=== PATIENT | female | born 1940 | race Caucasian/White ===

== ENCOUNTER → 2016-10-22 | Outpatient (REF) | payer MEDICARE, OTHER ==
[2016-10-22 13:26] LABS: ALBUMIN 3.5 GM/DL (3.2-5.2); ANION GAP 8 MEQ/L (8-16); BLOOD UREA NITROGEN 15 MG/DL (7-18); CALCIUM LEVEL 8.9 MG/DL (8.8-10.2); CARBON DIOXIDE LEVEL 30 MEQ/L (21-32); CHLORIDE LEVEL 105 MEQ/L (98-107); CREATININE FOR GFR 0.76 MG/DL (0.55-1.02); GLOMERULAR FILTRATION RATE > 60.0 (>39); GLUCOSE, FASTING 169 MG/DL (83-110); MAGNESIUM LEVEL 2.1 MG/DL (1.8-2.4); PHOSPHORUS LEVEL 3.1 MG/DL (2.5-4.9); POTASSIUM SERUM 4.6 MEQ/L (3.5-5.1); SODIUM LEVEL 143 MEQ/L (136-145)
== END ==
LOC: M LABDRWAD 12:07
PROVIDERS: ATTEND Physician Assistant
DX: R94.31 Abnormal electrocardiogram [ECG] [EKG] (principal); I49.3 Ventricular premature depolarization

== ENCOUNTER → 2017-06-07 | Outpatient (REF) | payer MEDICARE, OTHER ==
[2017-06-07 14:11] LABS: MEAN CORPUSCULAR HEMOGLOBIN 29.4 pg (27.0-33.0); MEAN CORPUSCULAR HGB CONC 31.2 g/dl (32.0-36.5); MEAN CORPUSCULAR VOLUME 94.1 fl (80.0-96.0); RED CELL DISTRIBUTION WIDTH 13.3 % (11.5-14.5); WHITE BLOOD COUNT 8.3 10^3/uL (4.0-10.0)
[2017-06-07 14:39] LABS: ALBUMIN 3.5 GM/DL (3.2-5.2); ALBUMIN/GLOBULIN RATIO 1.06 (1.00-1.93); ALKALINE PHOSPHATASE 72 U/L (45-117); ALT/SGPT 38 U/L (12-78); ANION GAP 7 MEQ/L (8-16); AST/SGOT 23 U/L (15-37); BILIRUBIN,TOTAL 0.6 MG/DL (0.2-1.0); BLOOD UREA NITROGEN 12 MG/DL (7-18); CALCIUM LEVEL 9.1 MG/DL (8.8-10.2); CARBON DIOXIDE LEVEL 30 MEQ/L (21-32); CHLORIDE LEVEL 105 MEQ/L (98-107); CHOLESTEROL LEVEL 186 MG/DL (<200); CREATININE FOR GFR 0.75 MG/DL (0.55-1.02); GLOMERULAR FILTRATION RATE > 60.0 (>39); GLUCOSE, FASTING 140 MG/DL (83-110); POTASSIUM SERUM 4.8 MEQ/L (3.5-5.1); SODIUM LEVEL 142 MEQ/L (136-145); TOTAL PROTEIN 6.8 GM/DL (6.4-8.2); TRIGLYCERIDES LEVEL 125 MG/DL (<150)
== END ==
LOC: M LABDRWAD 12:17
PROVIDERS: ATTEND Family Medicine
DX: E78.2 Mixed hyperlipidemia (principal)

== ENCOUNTER → 2017-06-07 | Outpatient (REF) | payer MEDICARE, OTHER | LOC: M LABDRWAD 12:18 | PROVIDERS: ATTEND Internal Medicine Endocrinology, Diabetes & Metabolism | DX: E11.9 Type 2 diabetes mellitus without complications (principal) ==

== ENCOUNTER → 2017-08-26 | Outpatient (REF) | payer MEDICARE, OTHER ==
[2017-08-26 12:45] LABS: MEAN CORPUSCULAR HEMOGLOBIN 29.5 pg (27.0-33.0); MEAN CORPUSCULAR HGB CONC 31.9 g/dl (32.0-36.5); MEAN CORPUSCULAR VOLUME 92.5 fl (80.0-96.0); PLATELET COUNT, AUTOMATED 220 10^3/uL (150-450); RED CELL DISTRIBUTION WIDTH 13.5 % (11.5-14.5); WHITE BLOOD COUNT 8.4 10^3/uL (4.0-10.0)
[2017-08-26 13:17] LABS: ALBUMIN 3.5 GM/DL (3.2-5.2); ANION GAP 6 MEQ/L (8-16); BLOOD UREA NITROGEN 14 MG/DL (7-18); CARBON DIOXIDE LEVEL 32 MEQ/L (21-32); CHLORIDE LEVEL 102 MEQ/L (98-107); CREATININE FOR GFR 0.75 MG/DL (0.55-1.02); GLOMERULAR FILTRATION RATE > 60.0 (>39); GLUCOSE, FASTING 180 MG/DL (83-110); PHOSPHORUS LEVEL 3.6 MG/DL (2.5-4.9); POTASSIUM SERUM 4.2 MEQ/L (3.5-5.1); SODIUM LEVEL 140 MEQ/L (136-145)
== END ==
LOC: M LABDRWAD 12:18
PROVIDERS: ATTEND Physician Assistant
DX: I48.91 Unspecified atrial fibrillation (principal)

== ENCOUNTER → 2017-09-29 | Outpatient (REF) | payer MEDICARE, OTHER | LOC: M LAB REF 12:43 | DX: I48.91 Unspecified atrial fibrillation (principal) | CPT/HCPCS: 82270 ==

== ENCOUNTER → 2017-09-30 | Outpatient (REF) | payer MEDICARE, OTHER ==
[2017-09-30 14:29] LABS: HEMATOCRIT 47.2 % (36.0-47.0); HEMOGLOBIN 15.2 g/dl (12.0-16.0); MEAN CORPUSCULAR HEMOGLOBIN 29.6 pg (27.0-33.0); MEAN CORPUSCULAR HGB CONC 32.2 g/dl (32.0-36.5); MEAN CORPUSCULAR VOLUME 91.8 fl (80.0-96.0); PLATELET COUNT, AUTOMATED 118 10^3/uL (150-450); RED BLOOD COUNT 5.14 10^6/uL (4.00-5.40); RED CELL DISTRIBUTION WIDTH 13.5 % (11.5-14.5); WHITE BLOOD COUNT 6.4 10^3/uL (4.0-10.0)
== END ==
LOC: M LABDRWAD 12:52
DX: I48.91 Unspecified atrial fibrillation (principal)
CPT/HCPCS: 85027

== ENCOUNTER → 2018-03-09 | Outpatient (REF) | payer MEDICARE, OTHER ==
[2018-03-09 13:05] LABS: HEMATOCRIT 44.6 % (36.0-47.0); HEMOGLOBIN 14.4 g/dl (12.0-15.5); MEAN CORPUSCULAR HEMOGLOBIN 30.3 pg (27.0-33.0); MEAN CORPUSCULAR HGB CONC 32.3 g/dl (32.0-36.5); MEAN CORPUSCULAR VOLUME 93.9 fl (80.0-96.0); PLATELET COUNT, AUTOMATED 188 10^3/uL (150-450); RED BLOOD COUNT 4.75 10^6/uL (4.00-5.40); RED CELL DISTRIBUTION WIDTH 13.7 % (11.5-14.5); WHITE BLOOD COUNT 8.2 10^3/uL (4.0-10.0)
[2018-03-09 13:47] LABS: ANION GAP 7 MEQ/L (8-16); BLOOD UREA NITROGEN 14 MG/DL (7-18); CALCIUM LEVEL 8.9 MG/DL (8.8-10.2); CARBON DIOXIDE LEVEL 31 MEQ/L (21-32); CHLORIDE LEVEL 105 MEQ/L (98-107); CREATININE FOR GFR 0.74 MG/DL (0.55-1.30); GLOMERULAR FILTRATION RATE > 60.0 (>39); GLUCOSE, FASTING 161 MG/DL (70-100); MAGNESIUM LEVEL 1.9 MG/DL (1.8-2.4); POTASSIUM SERUM 4.6 MEQ/L (3.5-5.1); SODIUM LEVEL 143 MEQ/L (136-145)
== END ==
LOC: M LAB REF 12:29
DX: I48.2 Chronic atrial fibrillation (principal)
CPT/HCPCS: 83735

== ENCOUNTER → 2019-03-08 | Outpatient (REF) | payer MEDICARE, OTHER ==
[2019-03-08 13:45] LABS: ALBUMIN 3.3 GM/DL (3.2-5.2); ALT/SGPT 37 U/L (12-78); BILIRUBIN,TOTAL 0.6 MG/DL (0.2-1.0); BLOOD UREA NITROGEN 14 MG/DL (7-18); CALCIUM LEVEL 8.9 MG/DL (8.8-10.2); CARBON DIOXIDE LEVEL 29 MEQ/L (21-32); CHLORIDE LEVEL 105 MEQ/L (98-107); CHOLESTEROL LEVEL 160 MG/DL (<200); CHOLESTEROL RISK RATIO 3.333 (<5); CREATININE FOR GFR 0.77 MG/DL (0.55-1.30); GLOMERULAR FILTRATION RATE > 60.0 (>39); GLUCOSE, FASTING 179 MG/DL (70-100); HDL CHOLESTEROL 48 MG/DL (>40); LDL CHOLESTEROL 87 MG/DL (<100); NON-HDL-C 112 MG/DL; POTASSIUM SERUM 4.6 MEQ/L (3.5-5.1); SODIUM LEVEL 139 MEQ/L (136-145); TOTAL PROTEIN 6.7 GM/DL (6.4-8.2); TRIGLYCERIDES LEVEL 125 MG/DL (<150)
[2019-03-08 14:13] LABS: CREATININE, URINE 60.1 MG/DL; MALB URINE SIEMENS 6.9 MG/L; MAU/CREAT RATIO 11.4 MCG/MG (0.0-30.0)
== END ==
LOC: M LABDRWAD 12:13
PROVIDERS: ATTEND Nurse Practitioner Family
DX: E11.9 Type 2 diabetes mellitus without complications (principal); E78.2 Mixed hyperlipidemia

== ENCOUNTER → 2019-06-22 | Outpatient (CLI) | payer MEDICARE, OTHER ==
--- NOTE | 2019-06-22 14:51 | REP ---
RIGHT KNEE, SIX VIEWS: Six views of the right knee performed. There is no acute fracture or dislocation. There is moderate medial joint space narrowing with subchondral sclerosis and spurring. Vascular calcifications are seen posteriorly. There is mild spurring of the superior pole of the patella and lateral patellar facet. IMPRESSION: Moderate degenerative changes. Electronically Signed by Gm Rios MD 06/26/2019 08:53 A
== END ==
LOC: M ADAMS 13:50
PROVIDERS: ATTEND Physician Assistant Medical
DX: M16.11 Unilateral primary osteoarthritis, right hip (principal)

== ENCOUNTER → 2020-10-10 | Outpatient (REF) | payer MEDICARE, OTHER ==
[2020-10-10 14:25] LABS: HEMOGLOBIN A1c 8.6 %
[2020-10-10 14:35] LABS: ALBUMIN 3.5 GM/DL (3.2-5.2); ALT/SGPT 42 U/L (12-78); BILIRUBIN,TOTAL 0.6 MG/DL (0.2-1.0); BLOOD UREA NITROGEN 11 MG/DL (7-18); CALCIUM LEVEL 9.5 MG/DL (8.8-10.2); CARBON DIOXIDE LEVEL 30 MEQ/L (21-32); CHLORIDE LEVEL 104 MEQ/L (98-107); CHOLESTEROL LEVEL 203 MG/DL (<200); CREATININE FOR GFR 0.72 MG/DL (0.55-1.30); GLOMERULAR FILTRATION RATE > 60.0 (>39); GLUCOSE, FASTING 206 MG/DL (70-100); HDL CHOLESTEROL 50 MG/DL (>40); LDL CHOLESTEROL 124 MG/DL (<100); NON-HDL-C 153 MG/DL; POTASSIUM SERUM 4.7 MEQ/L (3.5-5.1); SODIUM LEVEL 142 MEQ/L (136-145); TOTAL PROTEIN 6.8 GM/DL (6.4-8.2); TRIGLYCERIDES LEVEL 147 MG/DL (<150)
[2020-10-10 14:48] LABS: MAU/CREAT RATIO 41.8 MCG/MG (0.0-30.0)
== END ==
LOC: M LABDRWAD 12:40
PROVIDERS: ATTEND Nurse Practitioner Family
DX: E11.9 Type 2 diabetes mellitus without complications (principal); E78.2 Mixed hyperlipidemia

== ENCOUNTER → 2020-12-29 | Outpatient (REF) | payer MEDICARE, OTHER ==
[2020-12-29 12:57] LABS: BASO % 0.4 % (0.0-1.0); EOS # 0.1 10^3/uL (0.0-0.5); EOS % 1.4 % (0.0-3.0); HEMATOCRIT 45.3 % (36.0-47.0); HEMOGLOBIN 13.8 g/dl (12.0-15.5); LYMPH # 1.5 10^3/uL (1.5-5.0); LYMPH % 18.3 % (24.0-44.0); MEAN CORPUSCULAR HEMOGLOBIN 28.8 pg (27.0-33.0); MEAN CORPUSCULAR HGB CONC 30.5 g/dl (32.0-36.5); MEAN CORPUSCULAR VOLUME 94.4 fl (80.0-96.0); MONO # 0.5 10^3/uL (0.0-0.8); MONO % 5.8 % (2.0-8.0); NEUTROPHILS # 5.8 10^3/uL (1.5-8.5); NEUTROPHILS % 73.5 % (36.0-66.0); PLATELET COUNT, AUTOMATED 165 10^3/uL (150-450); WHITE BLOOD COUNT 7.9 10^3/uL (4.0-10.0)
== END ==
LOC: M LABDRWAD 12:18
PROVIDERS: ATTEND Family Medicine
DX: I10 Essential (primary) hypertension (principal)

== ENCOUNTER → 2020-12-29 | Outpatient (REF) | payer MEDICARE, OTHER ==
[2020-12-29 14:39] LABS: BLOOD UREA NITROGEN 11 MG/DL (7-18); CALCIUM LEVEL 9.3 MG/DL (8.8-10.2); CARBON DIOXIDE LEVEL 28 MEQ/L (21-32); CHLORIDE LEVEL 106 MEQ/L (98-107); GLOMERULAR FILTRATION RATE > 60.0 (>39); GLUCOSE, FASTING 164 MG/DL (70-100); POTASSIUM SERUM 4.3 MEQ/L (3.5-5.1); SODIUM LEVEL 140 MEQ/L (136-145)
== END ==
LOC: M LABDRWAD 12:16 → M LAB REF 12:16
PROVIDERS: ATTEND Nurse Practitioner Family
DX: E11.9 Type 2 diabetes mellitus without complications (principal); I10 Essential (primary) hypertension

== ENCOUNTER → 2021-04-02 | Outpatient (REF) | payer MEDICARE, OTHER ==
[2021-04-02 12:49] LABS: HEMATOCRIT 47.1 % (36.0-47.0); HEMOGLOBIN 14.7 g/dl (12.0-15.5); MEAN CORPUSCULAR HEMOGLOBIN 28.9 pg (27.0-33.0); MEAN CORPUSCULAR HGB CONC 31.2 g/dl (32.0-36.5); MEAN CORPUSCULAR VOLUME 92.5 fl (80.0-96.0); PLATELET COUNT, AUTOMATED 194 10^3/uL (150-450); RED BLOOD COUNT 5.09 10^6/uL (4.00-5.40)
[2021-04-02 13:21] LABS: BLOOD UREA NITROGEN 10 MG/DL (7-18); CALCIUM LEVEL 9.2 MG/DL (8.8-10.2); CARBON DIOXIDE LEVEL 30 MEQ/L (21-32); CHLORIDE LEVEL 106 MEQ/L (98-107); CREATININE FOR GFR 0.71 MG/DL (0.55-1.30); GLOMERULAR FILTRATION RATE > 60.0 (>39); GLUCOSE, FASTING 154 MG/DL (70-100); POTASSIUM SERUM 4.5 MEQ/L (3.5-5.1); SODIUM LEVEL 143 MEQ/L (136-145)
[2021-04-02 13:22] LABS: ALBUMIN 3.4 GM/DL (3.2-5.2); ALT/SGPT 35 U/L (12-78); BILIRUBIN,TOTAL 0.7 MG/DL (0.2-1.0); CHOLESTEROL LEVEL 191 MG/DL (<200); CHOLESTEROL RISK RATIO 3.745 (<5); HDL CHOLESTEROL 51 MG/DL (>40); LDL CHOLESTEROL 118 MG/DL (<100); MAGNESIUM LEVEL 2.4 MG/DL (1.8-2.4); NON-HDL-C 140 MG/DL; TRIGLYCERIDES LEVEL 109 MG/DL (<150)
== END ==
LOC: M LABDRWAD 12:26
PROVIDERS: ATTEND Physician Assistant
DX: I48.21 Permanent atrial fibrillation (principal); I25.10 Atherosclerotic heart disease of native coronary artery without angina pectoris; E78.00 Pure hypercholesterolemia, unspecified

== ENCOUNTER → 2022-02-11 | Outpatient (REF) | payer MEDICARE, OTHER ==
[2022-02-11 18:43] LABS: CREATININE, URINE 17.9 MG/DL; MALB URINE SIEMENS < 5.0 MG/L; MAU/CREAT RATIO 27.9 MCG/MG (0.0-30.0)
== END ==
LOC: M LAB REF 16:59
PROVIDERS: ATTEND Nurse Practitioner Family
DX: E11.9 Type 2 diabetes mellitus without complications (principal)

== ENCOUNTER → 2022-12-29 | Outpatient (CLI) | payer MEDICARE, OTHER ==
[2022-12-29 13:04] LABS: BASO % 0.1 % (0.0-1.0); EOS # 0.1 10^3/uL (0.0-0.5); EOS % 0.8 % (0.0-3.0); HEMATOCRIT 47.7 % (36.0-47.0); HEMOGLOBIN 14.8 g/dl (12.0-15.5); LYMPH # 0.9 10^3/uL (1.5-5.0); LYMPH % 13.2 % (24.0-44.0); MEAN CORPUSCULAR HEMOGLOBIN 28.8 pg (27.0-33.0); MONO # 0.4 10^3/uL (0.0-0.8); MONO % 5.5 % (2.0-8.0); NEUTROPHILS # 5.7 10^3/uL (1.5-8.5); NEUTROPHILS % 79.6 % (36.0-66.0); PLATELET COUNT, AUTOMATED 155 10^3/uL (150-450); RED BLOOD COUNT 5.13 10^6/uL (4.00-5.40); WHITE BLOOD COUNT 7.1 10^3/uL (4.0-10.0)
[2022-12-29 13:10] LABS: ALBUMIN 3.3 G/DL (3.2-5.2); ALKALINE PHOSPHATASE 77 U/L (46-116); ALT/SGPT 15 U/L (7.0-40); AST/SGOT 17 U/L (<34); BILIRUBIN,TOTAL 0.9 MG/DL (0.3-1.2); BLOOD UREA NITROGEN 16 MG/DL (9-23); CALCIUM LEVEL 9.1 MG/DL (8.3-10.6); CARBON DIOXIDE LEVEL 28 MMOL/L (20-31); CHLORIDE LEVEL 107 MMOL/L (98-107); CHOLESTEROL LEVEL 192 MG/DL (<200); CHOLESTEROL RISK RATIO 3.49 (<5); CREATININE FOR GFR 0.72 MG/DL (0.55-1.30); GLOMERULAR FILTRATION RATE > 60.0 (>32); GLUCOSE, FASTING 142 MG/DL (74-106); HDL CHOLESTEROL 54.9 MG/DL (>40); LDL CHOLESTEROL 114.9 MG/DL (<100); NON-HDL-C 137.1 MG/DL; POTASSIUM SERUM 4.6 MMOL/L (3.5-5.1); SODIUM LEVEL 141 MMOL/L (136-145); TOTAL PROTEIN 6.7 G/DL (5.7-8.2); TRIGLYCERIDES LEVEL 111 MG/DL (<150)
== END ==
LOC: M LABDRWAD 08:23
PROVIDERS: ATTEND Physician Assistant
DX: I48.21 Permanent atrial fibrillation (principal); I25.10 Atherosclerotic heart disease of native coronary artery without angina pectoris; I10 Essential (primary) hypertension; E78.00 Pure hypercholesterolemia, unspecified

== ENCOUNTER → 2023-01-20 | Outpatient (CLI) | payer MEDICARE, OTHER | LOC: M WUC 11:29 | PROVIDERS: ATTEND Student in an Organized Health Care Education/Training Program | DX: S42.211A Unspecified displaced fracture of surgical neck of right humerus, initial encounter for closed fracture (principal); S42.251A Displaced fracture of greater tuberosity of right humerus, initial encounter for closed fracture; M19.011 Primary osteoarthritis, right shoulder; M25.511 Pain in right shoulder; Y99.8 Other external cause status; Y93.89 Activity, other specified; Y92.89 Other specified places as the place of occurrence of the external cause ==

== ENCOUNTER → 2023-03-18 | Outpatient (REF) | payer MEDICARE, OTHER ==
[2023-03-18 14:24] LABS: BLOOD UREA NITROGEN 14 MG/DL (9-23); CALCIUM LEVEL 9.7 MG/DL (8.3-10.6); CARBON DIOXIDE LEVEL 29 MMOL/L (20-31); CHLORIDE LEVEL 105 MMOL/L (98-107); CREATININE FOR GFR 0.66 MG/DL (0.55-1.30); GLOMERULAR FILTRATION RATE > 60.0 (>32); GLUCOSE, FASTING 247 MG/DL (74-106); POTASSIUM SERUM 4.2 MMOL/L (3.5-5.1); SODIUM LEVEL 139 MMOL/L (136-145)
== END ==
LOC: M LABDRWAD 12:53
PROVIDERS: ATTEND Physician Assistant
DX: I50.32 Chronic diastolic (congestive) heart failure (principal)

== ENCOUNTER → 2023-03-22 | Outpatient (CLI) | payer MEDICARE, OTHER | LOC: M RAD 13:22 | PROVIDERS: ATTEND Surgery | DX: L97.212 Non-pressure chronic ulcer of right calf with fat layer exposed (principal) ==

== ENCOUNTER → 2023-03-24 | Outpatient (CLI) | payer MEDICARE, OTHER | LOC: M RAD 10:34 | PROVIDERS: ATTEND Physician Assistant | DX: I87.313 Chronic venous hypertension (idiopathic) with ulcer of bilateral lower extremity (principal) ==

== ENCOUNTER → 2023-04-13 | Outpatient (REF) | payer MEDICARE, OTHER ==
[2023-04-13 16:18] LABS: BLOOD UREA NITROGEN 18 MG/DL (9-23); CARBON DIOXIDE LEVEL 31 MMOL/L (20-31); CHLORIDE LEVEL 104 MMOL/L (98-107); GLOMERULAR FILTRATION RATE > 60.0 (>32); GLUCOSE, FASTING 175 MG/DL (74-106); MAGNESIUM LEVEL 1.9 MG/DL (1.8-2.4); POTASSIUM SERUM 4.2 MMOL/L (3.5-5.1); SODIUM LEVEL 141 MMOL/L (136-145)
== END ==
LOC: M LABDRWAD 15:54
PROVIDERS: ATTEND Physician Assistant
DX: I50.32 Chronic diastolic (congestive) heart failure (principal); E83.42 Hypomagnesemia

== ENCOUNTER → 2023-04-29 | Outpatient (REF) | payer MEDICARE, OTHER | LOC: M LAB REF 16:08 | PROVIDERS: ATTEND Podiatrist Foot & Ankle Surgery | DX: L03.032 Cellulitis of left toe (principal); B95.61 Methicillin susceptible Staphylococcus aureus infection as the cause of diseases classified elsewhere; B95.1 Streptococcus, group B, as the cause of diseases classified elsewhere; B96.89 Other specified bacterial agents as the cause of diseases classified elsewhere ==

== ENCOUNTER 2023-06-06 08:26 | Inpatient (IN) | payer MEDICARE, OTHER ==
[~2023-06-06] VITALS: Ht 165.1 cm; Wt 129.0 kg
[2023-06-06] MEDS ORDERED: NS 500 ML IV ONE ×2 (09:00→12:25)
[2023-06-06] MEDS ORDERED: ELIQ5TAB (10:16)
[2023-06-06] MEDS ORDERED: PIOG1TAB36 (10:16)
[2023-06-06] MEDS ORDERED: TORS20TA2 (10:16)
[2023-06-06] MEDS ORDERED: OMEP-173 (10:16)
[2023-06-06] MEDS ORDERED: LOSA100T46 (10:16)
[2023-06-06] MEDS ORDERED: REPA1TAB4 (10:16)
[2023-06-06] MEDS ORDERED: CARV6.25 (10:16)
[2023-06-06] MEDS ORDERED: GABA-282 (10:16)
[2023-06-06] MEDS ORDERED: AMLO1TAB24 (10:16)
[2023-06-06 10:48] LABS: RSV AMPLIFICATION NEGATIVE (NEGATIVE)
[2023-06-06 11:21] LABS: BASO % 0.1 % (0.0-1.0); HEMATOCRIT 40.4 % (36.0-47.0); HEMOGLOBIN 13.3 g/dl (12.0-15.5); LYMPH # 0.4 10^3/uL (1.5-5.0); LYMPH % 2.6 % (24.0-44.0); MEAN CORPUSCULAR HEMOGLOBIN 28.9 pg (27.0-33.0); MEAN CORPUSCULAR HGB CONC 32.9 g/dl (32.0-36.5); MEAN CORPUSCULAR VOLUME 87.6 fl (80.0-96.0); MONO # 0.5 10^3/uL (0.0-0.8); MONO % 3.2 % (2.0-8.0); NEUTROPHILS # 14.9 10^3/uL (1.5-8.5); NEUTROPHILS % 93.1 % (36.0-66.0); PLATELET COUNT, AUTOMATED 121 10^3/uL (150-450); RED BLOOD COUNT 4.61 10^6/uL (4.00-5.40)
[2023-06-06 11:38] LABS: CK-MB VALUE MASS 3.5 NG/ML (<3.6)
[2023-06-06 11:40] LABS: ETHYL ALCOHOL (ETHANOL) 0.004 % (0.000-0.010)
[2023-06-06 11:42] LABS: ACETAMINOPHEN LEVEL < 2.0 UG/ML (10.0-20.0); ALBUMIN 2.8 G/DL (3.2-5.2); ALKALINE PHOSPHATASE 90 U/L (46-116); ALT/SGPT 38 U/L (7.0-40); AST/SGOT 45 U/L (<34); BILIRUBIN,DIRECT 0.7 MG/DL (<0.4); BILIRUBIN,TOTAL 1.5 MG/DL (0.3-1.2); BLOOD UREA NITROGEN 33 MG/DL (9-23); CALCIUM LEVEL 9.1 MG/DL (8.3-10.6); CARBON DIOXIDE LEVEL 25 MMOL/L (20-31); CHLORIDE LEVEL 96 MMOL/L (98-107); CREATININE FOR GFR 0.86 MG/DL (0.55-1.30); GLOMERULAR FILTRATION RATE > 60.0 (>32); GLUCOSE, FASTING 336 MG/DL (74-106); MAGNESIUM LEVEL 1.8 MG/DL (1.8-2.4); POTASSIUM SERUM 4.2 MMOL/L (3.5-5.1); SALICYLATE LEVEL < 3.0 MG/DL (<30); SODIUM LEVEL 129 MMOL/L (136-145); TOTAL PROTEIN 6.7 G/DL (5.7-8.2)
[2023-06-06 11:43] LABS: CPK CREATINE PHOSPHOKINASE 387 U/L (34-145); THYROID STIMULATING HORMONE 1.711 uIU/ML (0.55-4.78)
[2023-06-06] MEDS ORDERED: PIPERACILLIN/TAZOBACTAM SOD 4.5 GM in D5W MINI-BAG PLUS 50 ML IV ONE (12:00)
[2023-06-06 13:23] LABS: FREE T4 1.16 NG/DL (0.89-1.76); THYROID STIMULATING HORMONE 1.01 uIU/ML (0.55-4.78)
[2023-06-06 13:29] LABS: MB/CK RELATIVE INDEX 0.84 (< OR =4)
[2023-06-06] MEDS ORDERED: VANCOMYCIN HCL 2,000 MG in D5W 500 ML IV ONE (14:00)
[2023-06-06] MEDS ORDERED: ISOVUE-370 76% 100ML VIAL As Ordered ONE (14:43)
[2023-06-06] MEDS ORDERED: VANCOMYCIN HCL 1,000 MG, VIAL MATE ADAPTER 1 EACH in D5W 250 ML IV ONE ×2 (15:00→16:00)
[2023-06-06] MEDS ORDERED: DEXTROSE 50% 50ML SYRINGE IV PRN (15:15)
[2023-06-06] MEDS ORDERED: GLUCAGON INJ 1MG VIAL SC PRN (15:15)
[2023-06-06] MEDS ORDERED: GLUCOSE 4GM CHEW TABLET PO PRN (15:15)
[2023-06-06] MEDS ORDERED: MED REC IN PROGRESS XX SCH (15:20)
[2023-06-06 15:49] LABS: PROCALCITONIN 1.98 ng/ml
[2023-06-06 15:55] LABS: C REACTIVE PROTEIN QUANTITATIV 30.8 MG/DL (<1.0)
[2023-06-06] MEDS: NS 1,000 ML IV SCH (17:16)
[2023-06-06] MEDS: INSULIN LISPRO (NovoLOG) PER UNIT SC SCH ×2 (17:30→20:03)
[2023-06-06] MEDS: PIPERACILLIN/TAZOBACTAM SOD 3.375 GM in D5W MINI-BAG PLUS 50 ML IV SCH (19:47)
[2023-06-06] MEDS ORDERED: CARVedilol 6.25 MG TAB PO SCH (21:00)
[2023-06-06 22:28] LABS: OSMOLALITY URINE 845 MOSM/KG (50-1400)
[2023-06-06 22:41] LABS: AMPHETAMINES LEVEL URINE NEGATIVE (NEGATIVE); BARBITURATES URINE NEGATIVE (NEGATIVE)
[2023-06-06 22:42] LABS: BENZODIAZEPINES URINE NEGATIVE (NEGATIVE); CANNABINOIDS URINE NEGATIVE (NEGATIVE); COCAINE METABOLITE URINE NEGATIVE (NEGATIVE); METHADONE URINE NEGATIVE (NEGATIVE); OPIATES URINE NEGATIVE (NEGATIVE); PHENCYCLIDINE URINE NEGATIVE (NEGATIVE)
[2023-06-06 22:45] LABS: CREATININE,RANDOM URINE 74.2 MG/DL
[2023-06-06 22:47] LABS: SODIUM,RANDOM URINE < 10 MMOL/L
[2023-06-06] MEDS ORDERED: OMEP1CAP73 PO (23:50)
[2023-06-06] MEDS ORDERED: TORS20TA2 PO (23:50)
[2023-06-06] MEDS ORDERED: LOSA100T46 PO (23:50)
[2023-06-06] MEDS ORDERED: CARV6.25 PO (23:50)
[2023-06-06] MEDS ORDERED: GABA-282 PO (23:50)
[2023-06-06] MEDS ORDERED: REPA1TAB4 PO (23:50)
[2023-06-06] MEDS ORDERED: ELIQ5TAB PO (23:50)
[2023-06-06] MEDS ORDERED: PIOG1TAB36 PO (23:50)
[2023-06-06] MEDS ORDERED: AMLO1TAB24 PO (23:50)
[2023-06-07] MEDS ORDERED: HOME MED LIST COMPLETE! XX SCH
[2023-06-07] MEDS ORDERED: VANCOMYCIN HCL 1,000 MG, VIAL MATE ADAPTER 1 EACH in D5W 250 ML IV SCH ×3
[2023-06-07] MEDS: APIXABAN 5 MG TAB (ELIQUIS) PO SCH ×3 (00:21→19:58)
[2023-06-07] MEDS: PIPERACILLIN/TAZOBACTAM SOD 3.375 GM in D5W MINI-BAG PLUS 50 ML IV SCH ×4 (01:22→18:28)
[2023-06-07] MEDS: NS 1,000 ML IV SCH (01:22)
[2023-06-07] MEDS ORDERED: CLINDAMYCIN 900 MG in IV 1 EA IV SCH (02:00)
[2023-06-07 07:24] LABS: BASO % 0.2 % (0.0-1.0); HEMATOCRIT 35.4 % (36.0-47.0); HEMOGLOBIN 11.6 g/dl (12.0-15.5); LYMPH # 0.3 10^3/uL (1.5-5.0); LYMPH % 1.9 % (24.0-44.0); MEAN CORPUSCULAR HEMOGLOBIN 28.8 pg (27.0-33.0); MEAN CORPUSCULAR HGB CONC 32.8 g/dl (32.0-36.5); MEAN CORPUSCULAR VOLUME 87.8 fl (80.0-96.0); MONO # 0.7 10^3/uL (0.0-0.8); MONO % 4.6 % (2.0-8.0); NEUTROPHILS # 14.3 10^3/uL (1.5-8.5); NEUTROPHILS % 92.1 % (36.0-66.0); PLATELET COUNT, AUTOMATED 116 10^3/uL (150-450); RED BLOOD COUNT 4.03 10^6/uL (4.00-5.40); WHITE BLOOD COUNT 15.6 10^3/uL (4.0-10.0)
[2023-06-07 07:59] LABS: ALBUMIN 2.1 G/DL (3.2-5.2); ALKALINE PHOSPHATASE 81 U/L (46-116); ALT/SGPT 29 U/L (7.0-40); AST/SGOT 36 U/L (<34); BILIRUBIN,TOTAL 1.1 MG/DL (0.3-1.2); BLOOD UREA NITROGEN 22 MG/DL (9-23); CALCIUM LEVEL 8.3 MG/DL (8.3-10.6); CARBON DIOXIDE LEVEL 25 MMOL/L (20-31); CHLORIDE LEVEL 100 MMOL/L (98-107); CREATININE FOR GFR 0.72 MG/DL (0.55-1.30); GLOMERULAR FILTRATION RATE > 60.0 (>32); GLUCOSE, FASTING 282 MG/DL (74-106); POTASSIUM SERUM 4.1 MMOL/L (3.5-5.1); SODIUM LEVEL 131 MMOL/L (136-145); TOTAL PROTEIN 5.5 G/DL (5.7-8.2)
[2023-06-07] MEDS: INSULIN LISPRO (NovoLOG) PER UNIT SC SCH ×4 (08:08→19:59)
[2023-06-07] MEDS: CARVedilol 12.5 MG TAB PO SCH ×2 (08:46→20:00)
[2023-06-07] MEDS: amLODIPine 5 MG TAB PO SCH (08:47)
[2023-06-07] MEDS ORDERED: LOSARTAN 50MG TABLET PO SCH (09:00)
[2023-06-07] MEDS: ONDANSETRON 4MG 2ML VIAL IV PRN (09:58)
[2023-06-07 10:37] LABS: HEMOGLOBIN A1c 8.2 % (4.0-6.0)
[2023-06-07] MEDS: VANCOMYCIN HCL 500 MG in D5W MINI-BAG PLUS 100 ML IV SCH (11:54)
[2023-06-07] MEDS: VANCOMYCIN HCL 750 MG, VIAL MATE ADAPTER 1 EACH in D5W 250 ML IV SCH ×2 (11:55→23:19)
[2023-06-07 15:30] VITALS: BP 127/70; TEMP 97.2; O2SAT 98
[2023-06-07 16:00] VITALS: O2SAT 97
[2023-06-07 20:40] VITALS: BP 115/58; TEMP 97.9; O2SAT 96
[2023-06-07] MEDS ORDERED: LEVEMIR (INSULIN DETEMIR) 1 UNITS/0.01ML SC SCH ×2 (21:00)
[2023-06-07] MEDS: PERCOCET 5MG/325MG TAB PO PRN (23:18)
[2023-06-08] VITALS (11 sets, daily range): BP systolic 86–118; BP diastolic 40–74; TEMP 96.7–97.7; O2SAT 95–98
[2023-06-08] MEDS: VANCOMYCIN HCL 500 MG in D5W MINI-BAG PLUS 100 ML IV SCH (00:31)
[2023-06-08] MEDS: PIPERACILLIN/TAZOBACTAM SOD 3.375 GM in D5W MINI-BAG PLUS 50 ML IV SCH ×2 (01:45→08:52)
[2023-06-08 06:37] LABS: BASO # 0.1 10^3/uL (0.0-0.2); BASO % 0.3 % (0.0-1.0); EOS % 0.1 % (0.0-3.0); HEMATOCRIT 33.7 % (36.0-47.0); LYMPH # 0.5 10^3/uL (1.5-5.0); LYMPH % 2.8 % (24.0-44.0); MEAN CORPUSCULAR HEMOGLOBIN 28.9 pg (27.0-33.0); MEAN CORPUSCULAR HGB CONC 32.6 g/dl (32.0-36.5); MEAN CORPUSCULAR VOLUME 88.7 fl (80.0-96.0); MONO # 0.9 10^3/uL (0.0-0.8); NEUTROPHILS # 16.7 10^3/uL (1.5-8.5); PLATELET COUNT, AUTOMATED 118 10^3/uL (150-450); WHITE BLOOD COUNT 18.6 10^3/uL (4.0-10.0)
[2023-06-08 07:08] LABS: ALBUMIN 1.7 G/DL (3.2-5.2); BILIRUBIN,TOTAL 0.9 MG/DL (0.3-1.2); C REACTIVE PROTEIN QUANTITATIV 23.7 MG/DL (<1.0); CREATININE FOR GFR 1.05 MG/DL (0.55-1.30); GLOMERULAR FILTRATION RATE 53.7 (>32); POTASSIUM SERUM 3.8 MMOL/L (3.5-5.1)
[2023-06-08] MEDS: PANTOPRAZOLE 40MG VIAL IV SCH (08:44)
[2023-06-08] MEDS: INSULIN LISPRO (NovoLOG) PER UNIT SC SCH ×4 (08:52→20:20)
[2023-06-08] MEDS: APIXABAN 5 MG TAB (ELIQUIS) PO SCH ×2 (08:52→20:38)
[2023-06-08] MEDS: PERCOCET 5MG/325MG TAB PO PRN ×2 (08:53→16:18)
[2023-06-08] MEDS: amLODIPine 5 MG TAB PO SCH (09:00)
[2023-06-08] MEDS: CARVedilol 12.5 MG TAB PO SCH (09:00)
[2023-06-08] MEDS ORDERED: NS 500 ML IV ONE (10:25)
[2023-06-08] MEDS ORDERED: TOLVAPTAN 7.5 MG HALF-TAB PO ONE (12:00)
[2023-06-08] MEDS ORDERED: MOM 30ML SUSPENSION UDC PO ONE (12:10)
[2023-06-08] MEDS ORDERED: SIMETHICONE 80MG CHEW TAB PO ONE (12:10)
[2023-06-08] MEDS ORDERED: MEROPENEM INJ 2 GM in NS 100 ML IV SCH (13:30)
[2023-06-08] MEDS ORDERED: NS 1,000 ML IV ONE ×2 (14:20)
[2023-06-08] MEDS: MEROPENEM INJ 1 GM in IV 1 EA IV SCH ×3 (14:39→22:32)
[2023-06-08] MEDS: NS 1,000 ML IV SCH (17:01)
[2023-06-08] MEDS: SENOKOT S TAB PO SCH (20:27)
[2023-06-08] MEDS: CARVedilol 3.125 MG TAB PO SCH (20:28)
[2023-06-08] MEDS: VANCOMYCIN HCL 750 MG, VIAL MATE ADAPTER 1 EACH in D5W 250 ML IV SCH (20:38)
[2023-06-08] MEDS: LEVEMIR (INSULIN DETEMIR) 1 UNITS/0.01ML SC SCH (20:39)
[2023-06-09] MEDS: NS 1,000 ML IV SCH ×3 (02:43→21:33)
[2023-06-09 04:16] VITALS: BP 106/54; TEMP 97.2; O2SAT 95
[2023-06-09] MEDS: MORPHINE 2 MG/ML 1ML VIAL IV PRN (05:37)
[2023-06-09] MEDS: MEROPENEM INJ 1 GM in IV 1 EA IV SCH ×7 (06:41→23:22)
[2023-06-09 07:15] LABS: HEMATOCRIT 33.9 % (36.0-47.0); HEMOGLOBIN 10.9 g/dl (12.0-15.5); MEAN CORPUSCULAR HEMOGLOBIN 28.8 pg (27.0-33.0); MEAN CORPUSCULAR HGB CONC 32.2 g/dl (32.0-36.5); MEAN CORPUSCULAR VOLUME 89.7 fl (80.0-96.0); PLATELET COUNT, AUTOMATED 135 10^3/uL (150-450); RED BLOOD COUNT 3.78 10^6/uL (4.00-5.40); WHITE BLOOD COUNT 19.3 10^3/uL (4.0-10.0)
[2023-06-09 07:30] LABS: VANCOMYCIN LEVEL TROUGH 12.8 UG/ML (10.0-20.0)
[2023-06-09 07:37] VITALS: BP 127/58; TEMP 97.3; O2SAT 96
[2023-06-09 07:50] LABS: ALBUMIN 1.9 G/DL (3.2-5.2); ALKALINE PHOSPHATASE 114 U/L (46-116); ALT/SGPT 34 U/L (7.0-40); AST/SGOT 33 U/L (<34); BLOOD UREA NITROGEN 28 MG/DL (9-23); CALCIUM LEVEL 8.3 MG/DL (8.3-10.6); CARBON DIOXIDE LEVEL 25 MMOL/L (20-31); CHLORIDE LEVEL 107 MMOL/L (98-107); GLOMERULAR FILTRATION RATE > 60.0 (>32); GLUCOSE, FASTING 152 MG/DL (74-106); POTASSIUM SERUM 3.8 MMOL/L (3.5-5.1); SODIUM LEVEL 137 MMOL/L (136-145); TOTAL PROTEIN 5.3 G/DL (5.7-8.2)
[2023-06-09 08:01] LABS: ATYPICAL LYMPH 1 % (0-5); LYMPHOCYTES 5 % (16-44); MONOCYTES 4 % (0-5); NEUTROPHILS 86 % (28-66)
[2023-06-09 08:02] LABS: ANISOCYTOSIS 1+; PLATELET ESTIMATE DECREASED (NORMAL)
[2023-06-09] MEDS: INSULIN LISPRO (NovoLOG) PER UNIT SC SCH ×4 (08:38→21:03)
[2023-06-09] MEDS: CARVedilol 3.125 MG TAB PO SCH ×2 (08:38→20:57)
[2023-06-09] MEDS: APIXABAN 5 MG TAB (ELIQUIS) PO SCH ×2 (08:38→20:56)
[2023-06-09] MEDS: PANTOPRAZOLE 40MG VIAL IV SCH (08:38)
[2023-06-09] MEDS: SENOKOT S TAB PO SCH ×2 (08:39→21:00)
[2023-06-09] MEDS: VANCOMYCIN HCL 750 MG, VIAL MATE ADAPTER 1 EACH in D5W 250 ML IV SCH ×2 (09:47→20:56)
[2023-06-09 16:20] VITALS: BP 130/73; TEMP 97.6; O2SAT 97
[2023-06-09 19:56] VITALS: BP 107/62; TEMP 97.4; O2SAT 92
[2023-06-09] MEDS: LEVEMIR (INSULIN DETEMIR) 1 UNITS/0.01ML SC SCH (21:03)
[2023-06-09 23:05] VITALS: BP 137/73; TEMP 97.5; O2SAT 94
[2023-06-10] MEDS: MEROPENEM INJ 1 GM in IV 1 EA IV SCH ×7 (01:03→23:58)
[2023-06-10 04:02] VITALS: BP 136/80; TEMP 97.6; O2SAT 94
[2023-06-10] MEDS: MORPHINE 2 MG/ML 1ML VIAL IV PRN (06:33)
[2023-06-10 07:40] VITALS: BP 148/90; TEMP 97.6; O2SAT 97
[2023-06-10] MEDS: APIXABAN 5 MG TAB (ELIQUIS) PO SCH ×2 (08:42→21:05)
[2023-06-10] MEDS: CARVedilol 3.125 MG TAB PO SCH ×2 (08:42→21:06)
[2023-06-10] MEDS: INSULIN LISPRO (NovoLOG) PER UNIT SC SCH ×4 (08:43→20:18)
[2023-06-10] MEDS: SENOKOT S TAB PO SCH (08:43)
[2023-06-10 08:52] LABS: HEMATOCRIT 36.4 % (36.0-47.0); HEMOGLOBIN 11.8 g/dl (12.0-15.5); MEAN CORPUSCULAR HEMOGLOBIN 28.9 pg (27.0-33.0); MEAN CORPUSCULAR HGB CONC 32.4 g/dl (32.0-36.5); MEAN CORPUSCULAR VOLUME 89.2 fl (80.0-96.0); PLATELET COUNT, AUTOMATED 182 10^3/uL (150-450); RED BLOOD COUNT 4.08 10^6/uL (4.00-5.40); WHITE BLOOD COUNT 15.2 10^3/uL (4.0-10.0)
[2023-06-10 09:13] LABS: VANCOMYCIN LEVEL TROUGH 11.2 UG/ML (10.0-20.0)
[2023-06-10 09:16] LABS: ALBUMIN 1.9 G/DL (3.2-5.2); ALKALINE PHOSPHATASE 187 U/L (46-116); ALT/SGPT 42 U/L (7.0-40); AST/SGOT 36 U/L (<34); BILIRUBIN,TOTAL 0.9 MG/DL (0.3-1.2); BLOOD UREA NITROGEN 17 MG/DL (9-23); CALCIUM LEVEL 8.3 MG/DL (8.3-10.6); CARBON DIOXIDE LEVEL 28 MMOL/L (20-31); CHLORIDE LEVEL 107 MMOL/L (98-107); GLOMERULAR FILTRATION RATE > 60.0 (>32); GLUCOSE, FASTING 178 MG/DL (74-106); POTASSIUM SERUM 3.8 MMOL/L (3.5-5.1); SODIUM LEVEL 141 MMOL/L (136-145); TOTAL PROTEIN 5.6 G/DL (5.7-8.2)
[2023-06-10 09:56] LABS: EOSINOPHILS 1 % (0-3); LYMPHOCYTES 5 % (16-44); MONOCYTES 4 % (0-5); NEUTROPHILS 81 % (28-66); PLATELET ESTIMATE NORMAL (NORMAL)
[2023-06-10] MEDS: PANTOPRAZOLE 40MG VIAL IV SCH (10:01)
[2023-06-10] MEDS: VANCOMYCIN HCL 750 MG, VIAL MATE ADAPTER 1 EACH in D5W 250 ML IV SCH (10:01)
[2023-06-10] MEDS ORDERED: FUROSEMIDE 40MG/4ML VIAL IV ONE (11:00)
[2023-06-10 11:32] VITALS: BP 142/76; TEMP 96.4; O2SAT 96
[2023-06-10 16:00] VITALS: BP 136/74; TEMP 96.7; O2SAT 94
[2023-06-10 20:00] VITALS: BP 146/77; TEMP 97.8; O2SAT 95
[2023-06-10] MEDS ORDERED: VANCOMYCIN HCL 1,000 MG, VIAL MATE ADAPTER 1 EACH in D5W 250 ML IV SCH (20:00)
[2023-06-10] MEDS: VANCOMYCIN HCL 1,000 MG, VIAL MATE ADAPTER 1 EACH in D5W 250 ML IV SCH (21:05)
[2023-06-10] MEDS: LEVEMIR (INSULIN DETEMIR) 1 UNITS/0.01ML SC SCH (21:07)
[2023-06-11] VITALS (7 sets, daily range): BP systolic 120–152; BP diastolic 64–85; TEMP 96.4–98.5; O2SAT 94–97
[2023-06-11] MEDS: MEROPENEM INJ 1 GM in IV 1 EA IV SCH ×5 (06:48→23:16)
[2023-06-11 07:05] LABS: HEMATOCRIT 34.8 % (36.0-47.0); HEMOGLOBIN 11.2 g/dl (12.0-15.5); MEAN CORPUSCULAR HEMOGLOBIN 28.9 pg (27.0-33.0); MEAN CORPUSCULAR HGB CONC 32.2 g/dl (32.0-36.5); MEAN CORPUSCULAR VOLUME 89.9 fl (80.0-96.0); PLATELET COUNT, AUTOMATED 202 10^3/uL (150-450); RED BLOOD COUNT 3.87 10^6/uL (4.00-5.40)
[2023-06-11 07:30] LABS: ATYPICAL LYMPH 1 % (0-5); EOSINOPHILS 2 % (0-3); LYMPHOCYTES 11 % (16-44); MONOCYTES 8 % (0-5); NEUTROPHILS 74 % (28-66)
[2023-06-11 07:33] LABS: PLATELET ESTIMATE NORMAL (NORMAL); POLYCHROMASIA 1+
[2023-06-11 07:35] LABS: VANCOMYCIN LEVEL TROUGH 12.3 UG/ML (10.0-20.0)
[2023-06-11] MEDS: INSULIN LISPRO (NovoLOG) PER UNIT SC SCH ×4 (07:52→20:52)
[2023-06-11] MEDS: PANTOPRAZOLE 40MG VIAL IV SCH (07:52)
[2023-06-11] MEDS: CARVedilol 3.125 MG TAB PO SCH ×2 (07:53→20:52)
[2023-06-11] MEDS: APIXABAN 5 MG TAB (ELIQUIS) PO SCH ×2 (07:53→20:52)
[2023-06-11 08:06] LABS: ALBUMIN 1.7 G/DL (3.2-5.2); ALKALINE PHOSPHATASE 172 U/L (46-116); ALT/SGPT 37 U/L (7.0-40); AST/SGOT 31 U/L (<34); BILIRUBIN,TOTAL 0.7 MG/DL (0.3-1.2); BLOOD UREA NITROGEN 16 MG/DL (9-23); CALCIUM LEVEL 7.9 MG/DL (8.3-10.6); CARBON DIOXIDE LEVEL 29 MMOL/L (20-31); CHLORIDE LEVEL 108 MMOL/L (98-107); CREATININE FOR GFR 0.57 MG/DL (0.55-1.30); GLOMERULAR FILTRATION RATE > 60.0 (>32); GLUCOSE, FASTING 151 MG/DL (74-106); POTASSIUM SERUM 3.9 MMOL/L (3.5-5.1); SODIUM LEVEL 142 MMOL/L (136-145); TOTAL PROTEIN 5.2 G/DL (5.7-8.2)
[2023-06-11] MEDS: VANCOMYCIN HCL 1,000 MG, VIAL MATE ADAPTER 1 EACH in D5W 250 ML IV SCH ×2 (09:09→20:52)
[2023-06-11] MEDS: TORSEMIDE 20 MG TAB PO SCH (10:38)
[2023-06-11] MEDS ORDERED: FUROSEMIDE 40MG/4ML VIAL IV ONE (13:30)
[2023-06-11] MEDS: PERCOCET 5MG/325MG TAB PO PRN (16:35)
[2023-06-11] MEDS: LEVEMIR (INSULIN DETEMIR) 1 UNITS/0.01ML SC SCH (20:52)
[2023-06-12] MEDS: MEROPENEM INJ 1 GM in IV 1 EA IV SCH ×6 (00:48→22:56)
[2023-06-12 03:42] VITALS: BP 141/79; TEMP 98.4; O2SAT 95
[2023-06-12 07:01] LABS: HEMATOCRIT 35.9 % (36.0-47.0); HEMOGLOBIN 11.5 g/dl (12.0-15.5); MEAN CORPUSCULAR HEMOGLOBIN 28.7 pg (27.0-33.0); MEAN CORPUSCULAR VOLUME 89.5 fl (80.0-96.0); PLATELET COUNT, AUTOMATED 228 10^3/uL (150-450); RED BLOOD COUNT 4.01 10^6/uL (4.00-5.40); WHITE BLOOD COUNT 10.6 10^3/uL (4.0-10.0)
[2023-06-12 07:32] LABS: ATYPICAL LYMPH 1 % (0-5); LYMPHOCYTES 7 % (16-44); METAMYELOCYTES 1 % (0-0); MONOCYTES 5 % (0-5); NEUTROPHILS 79 % (28-66)
[2023-06-12 07:34] LABS: PLATELET CLUMPS SMALL AMT; PLATELET ESTIMATE NORMAL (NORMAL); POLYCHROMASIA 1+
[2023-06-12 07:51] VITALS: BP 139/68; TEMP 98.3; O2SAT 96
[2023-06-12 07:53] LABS: ALBUMIN 1.8 G/DL (3.2-5.2); ALKALINE PHOSPHATASE 163 U/L (46-116); ALT/SGPT 33 U/L (7.0-40); AST/SGOT 22 U/L (<34); BILIRUBIN,TOTAL 0.8 MG/DL (0.3-1.2); BLOOD UREA NITROGEN 16 MG/DL (9-23); CALCIUM LEVEL 7.6 MG/DL (8.3-10.6); CARBON DIOXIDE LEVEL 36 MMOL/L (20-31); CHLORIDE LEVEL 103 MMOL/L (98-107); CREATININE FOR GFR 0.58 MG/DL (0.55-1.30); GLOMERULAR FILTRATION RATE > 60.0 (>32); GLUCOSE, FASTING 111 MG/DL (74-106); MAGNESIUM LEVEL 1.9 MG/DL (1.8-2.4); POTASSIUM SERUM 3.3 MMOL/L (3.5-5.1); SODIUM LEVEL 142 MMOL/L (136-145); TOTAL PROTEIN 5.3 G/DL (5.7-8.2); VANCOMYCIN LEVEL TROUGH 14.7 UG/ML (10.0-20.0)
[2023-06-12] MEDS: INSULIN LISPRO (NovoLOG) PER UNIT SC SCH ×4 (09:13→20:55)
[2023-06-12] MEDS: PANTOPRAZOLE 40MG VIAL IV SCH (09:14)
[2023-06-12] MEDS: APIXABAN 5 MG TAB (ELIQUIS) PO SCH ×2 (09:15→21:19)
[2023-06-12] MEDS: CARVedilol 3.125 MG TAB PO SCH (09:15)
[2023-06-12] MEDS: TORSEMIDE 20 MG TAB PO SCH (09:15)
[2023-06-12] MEDS ORDERED: POTASSIUM CHLORIDE 10MEQ SR TABLET PO ONE (09:45)
[2023-06-12] MEDS: VANCOMYCIN HCL 1,000 MG, VIAL MATE ADAPTER 1 EACH in D5W 250 ML IV SCH ×2 (10:37→21:20)
[2023-06-12] MEDS ORDERED: SIMETHICONE 80MG CHEW TAB PO ONE (15:35)
[2023-06-12 16:00] VITALS: BP 132/56; TEMP 96.7; O2SAT 96
[2023-06-12] MEDS: PERCOCET 5MG/325MG TAB PO PRN (18:18)
[2023-06-12 19:32] VITALS: BP_SYST 150; BP_DIAS 67; BP_DIAS 7; TEMP 97; O2SAT 95
[2023-06-12] MEDS: CARVedilol 6.25 MG TAB PO SCH (21:19)
[2023-06-12] MEDS: LEVEMIR (INSULIN DETEMIR) 1 UNITS/0.01ML SC SCH (21:19)
[2023-06-13 04:00] VITALS: BP 138/63; TEMP 96.8; O2SAT 94
[2023-06-13 05:17] LABS: HEMATOCRIT 36.1 % (36.0-47.0); HEMOGLOBIN 11.5 g/dl (12.0-15.5); MEAN CORPUSCULAR HEMOGLOBIN 28.7 pg (27.0-33.0); MEAN CORPUSCULAR HGB CONC 31.9 g/dl (32.0-36.5); PLATELET COUNT, AUTOMATED 235 10^3/uL (150-450); RED BLOOD COUNT 4.01 10^6/uL (4.00-5.40); WHITE BLOOD COUNT 9.3 10^3/uL (4.0-10.0)
[2023-06-13 05:46] LABS: ALBUMIN 1.7 G/DL (3.2-5.2); ALKALINE PHOSPHATASE 152 U/L (46-116); ALT/SGPT 23 U/L (7.0-40); AST/SGOT 19 U/L (<34); BILIRUBIN,TOTAL 0.7 MG/DL (0.3-1.2); BLOOD UREA NITROGEN 18 MG/DL (9-23); CALCIUM LEVEL 7.7 MG/DL (8.3-10.6); CARBON DIOXIDE LEVEL 36 MMOL/L (20-31); CHLORIDE LEVEL 100 MMOL/L (98-107); CREATININE FOR GFR 0.58 MG/DL (0.55-1.30); GLOMERULAR FILTRATION RATE > 60.0 (>32); GLUCOSE, FASTING 131 MG/DL (74-106); POTASSIUM SERUM 3.7 MMOL/L (3.5-5.1); SODIUM LEVEL 138 MMOL/L (136-145); TOTAL PROTEIN 5.2 G/DL (5.7-8.2)
[2023-06-13 05:57] LABS: ATYPICAL LYMPH 3 % (0-5); EOSINOPHILS 1 % (0-3); HYPOCHROMASIA 1+; LYMPHOCYTES 7 % (16-44); MONOCYTES 8 % (0-5); NEUTROPHILS 80 % (28-66); PLATELET ESTIMATE NORMAL (NORMAL)
[2023-06-13] MEDS: MEROPENEM INJ 1 GM in IV 1 EA IV SCH ×7 (06:35→22:57)
[2023-06-13] MEDS: INSULIN LISPRO (NovoLOG) PER UNIT SC SCH ×4 (07:30→20:13)
[2023-06-13 07:47] VITALS: BP 119/71; TEMP 96.9; O2SAT 96
[2023-06-13] MEDS: APIXABAN 5 MG TAB (ELIQUIS) PO SCH ×2 (08:37→20:14)
[2023-06-13] MEDS: PANTOPRAZOLE 40MG VIAL IV SCH (08:37)
[2023-06-13] MEDS: CARVedilol 6.25 MG TAB PO SCH ×2 (08:37→20:14)
[2023-06-13] MEDS: VANCOMYCIN HCL 1,000 MG, VIAL MATE ADAPTER 1 EACH in D5W 250 ML IV SCH ×2 (08:38→19:43)
[2023-06-13] MEDS: PERCOCET 5MG/325MG TAB PO PRN (11:23)
[2023-06-13 15:58] VITALS: BP 130/68; TEMP 97; O2SAT 99
[2023-06-13 19:25] VITALS: BP 127/67; TEMP 97.2; O2SAT 98
[2023-06-13] MEDS: LEVEMIR (INSULIN DETEMIR) 1 UNITS/0.01ML SC SCH (20:12)
[2023-06-14] MEDS: MEROPENEM INJ 1 GM in IV 1 EA IV SCH ×3 (00:33→10:51)
[2023-06-14 03:07] VITALS: BP 134/74; TEMP 97; O2SAT 96
[2023-06-14] MEDS: INSULIN LISPRO (NovoLOG) PER UNIT SC SCH ×4 (07:30→20:15)
[2023-06-14 07:49] LABS: BASO % 0.2 % (0.0-1.0); EOS # 0.1 10^3/uL (0.0-0.5); EOS % 0.5 % (0.0-3.0); HEMATOCRIT 40.4 % (36.0-47.0); HEMOGLOBIN 12.7 g/dl (12.0-15.5); LYMPH % 10.2 % (24.0-44.0); MEAN CORPUSCULAR HEMOGLOBIN 28.5 pg (27.0-33.0); MEAN CORPUSCULAR HGB CONC 31.4 g/dl (32.0-36.5); MEAN CORPUSCULAR VOLUME 90.8 fl (80.0-96.0); MONO # 0.7 10^3/uL (0.0-0.8); NEUTROPHILS # 7.5 10^3/uL (1.5-8.5); NEUTROPHILS % 79.9 % (36.0-66.0); PLATELET COUNT, AUTOMATED 188 10^3/uL (150-450); RED BLOOD COUNT 4.45 10^6/uL (4.00-5.40); WHITE BLOOD COUNT 9.4 10^3/uL (4.0-10.0)
[2023-06-14 08:15] VITALS: BP 123/81; TEMP 97.3; O2SAT 94
[2023-06-14 08:22] LABS: VANCOMYCIN LEVEL TROUGH 16.4 UG/ML (10.0-20.0)
[2023-06-14 08:26] LABS: BLOOD UREA NITROGEN 14 MG/DL (9-23); CARBON DIOXIDE LEVEL 34 MMOL/L (20-31); CHLORIDE LEVEL 100 MMOL/L (98-107); CREATININE FOR GFR 0.55 MG/DL (0.55-1.30); GLOMERULAR FILTRATION RATE > 60.0 (>32); GLUCOSE, FASTING 93 MG/DL (74-106); POTASSIUM SERUM 4.6 MMOL/L (3.5-5.1); SODIUM LEVEL 138 MMOL/L (136-145)
[2023-06-14] MEDS: PANTOPRAZOLE 40MG VIAL IV SCH (09:08)
[2023-06-14] MEDS: APIXABAN 5 MG TAB (ELIQUIS) PO SCH ×2 (09:09→20:19)
[2023-06-14] MEDS: CARVedilol 6.25 MG TAB PO SCH ×2 (09:09→20:19)
[2023-06-14] MEDS: VANCOMYCIN HCL 1,000 MG, VIAL MATE ADAPTER 1 EACH in D5W 250 ML IV SCH (09:09)
[2023-06-14] MEDS: ONDANSETRON 4MG 2ML VIAL IV PRN ×2 (10:51→20:19)
[2023-06-14 12:08] VITALS: BP 134/84; TEMP 97.2; O2SAT 95
[2023-06-14] MEDS: TORSEMIDE 20 MG TAB PO SCH (15:23)
[2023-06-14] MEDS: LevoFLOXacin 750 MG TABLET PO SCH (15:24)
[2023-06-14 15:35] VITALS: BP 118/59; TEMP 97.4; O2SAT 96
[2023-06-14 19:28] VITALS: BP 137/67; TEMP 97.6; O2SAT 96
[2023-06-14] MEDS: DOXYCYCLINE HYCLATE 100MG TABLET PO SCH (20:19)
[2023-06-14] MEDS: LEVEMIR (INSULIN DETEMIR) 1 UNITS/0.01ML SC SCH (20:19)
[2023-06-15 03:45] VITALS: BP 125/73; TEMP 97.1; O2SAT 95
[2023-06-15 05:44] LABS: HEMATOCRIT 38.2 % (36.0-47.0); HEMOGLOBIN 12.3 g/dl (12.0-15.5); MEAN CORPUSCULAR HEMOGLOBIN 29.4 pg (27.0-33.0); MEAN CORPUSCULAR HGB CONC 32.2 g/dl (32.0-36.5); MEAN CORPUSCULAR VOLUME 91.2 fl (80.0-96.0); PLATELET COUNT, AUTOMATED 220 10^3/uL (150-450); RED BLOOD COUNT 4.19 10^6/uL (4.00-5.40); WHITE BLOOD COUNT 9.3 10^3/uL (4.0-10.0)
[2023-06-15] MEDS: LevoFLOXacin 750 MG TABLET PO SCH (05:50)
[2023-06-15 06:11] LABS: ALBUMIN 1.9 G/DL (3.2-5.2); ALKALINE PHOSPHATASE 142 U/L (46-116); ALT/SGPT 29 U/L (7.0-40); AST/SGOT 41 U/L (<34); BILIRUBIN,TOTAL 0.7 MG/DL (0.3-1.2); BLOOD UREA NITROGEN 15 MG/DL (9-23); CALCIUM LEVEL 7.9 MG/DL (8.3-10.6); CARBON DIOXIDE LEVEL 35 MMOL/L (20-31); CHLORIDE LEVEL 103 MMOL/L (98-107); CREATININE FOR GFR 0.77 MG/DL (0.55-1.30); GLOMERULAR FILTRATION RATE > 60.0 (>32); GLUCOSE, FASTING 81 MG/DL (74-106); POTASSIUM SERUM 4.5 MMOL/L (3.5-5.1); SODIUM LEVEL 142 MMOL/L (136-145); TOTAL PROTEIN 5.9 G/DL (5.7-8.2)
[2023-06-15] MEDS: INSULIN LISPRO (NovoLOG) PER UNIT SC SCH ×4 (07:30→21:00)
[2023-06-15 08:55] VITALS: BP 128/84; TEMP 97.5; O2SAT 94
[2023-06-15] MEDS: APIXABAN 5 MG TAB (ELIQUIS) PO SCH ×2 (09:07→21:45)
[2023-06-15] MEDS: CARVedilol 6.25 MG TAB PO SCH ×2 (09:07→21:47)
[2023-06-15] MEDS: TORSEMIDE 20 MG TAB PO SCH (09:07)
[2023-06-15] MEDS: DOXYCYCLINE HYCLATE 100MG TABLET PO SCH ×2 (09:07→21:45)
[2023-06-15] MEDS: PANTOPRAZOLE 40MG VIAL IV SCH (09:07)
[2023-06-15 14:21] VITALS: BP 123/74; TEMP 98.1; O2SAT 96
[2023-06-15] MEDS: PERCOCET 5MG/325MG TAB PO PRN (17:43)
[2023-06-15] MEDS: LEVEMIR (INSULIN DETEMIR) 1 UNITS/0.01ML SC SCH (21:44)
[2023-06-16 04:30] VITALS: BP 125/65; TEMP 97.5; O2SAT 94
[2023-06-16] MEDS: LevoFLOXacin 750 MG TABLET PO SCH (05:35)
[2023-06-16 07:05] LABS: HEMATOCRIT 36.9 % (36.0-47.0); HEMOGLOBIN 11.7 g/dl (12.0-15.5); MEAN CORPUSCULAR HEMOGLOBIN 28.7 pg (27.0-33.0); MEAN CORPUSCULAR HGB CONC 31.7 g/dl (32.0-36.5); MEAN CORPUSCULAR VOLUME 90.7 fl (80.0-96.0); PLATELET COUNT, AUTOMATED 229 10^3/uL (150-450); RED BLOOD COUNT 4.07 10^6/uL (4.00-5.40); WHITE BLOOD COUNT 8.7 10^3/uL (4.0-10.0)
[2023-06-16 07:26] LABS: ALKALINE PHOSPHATASE 136 U/L (46-116); ALT/SGPT 20 U/L (7.0-40); AST/SGOT 21 U/L (<34); BILIRUBIN,TOTAL 0.8 MG/DL (0.3-1.2); BLOOD UREA NITROGEN 16 MG/DL (9-23); CALCIUM LEVEL 8.2 MG/DL (8.3-10.6); CARBON DIOXIDE LEVEL 33 MMOL/L (20-31); CHLORIDE LEVEL 103 MMOL/L (98-107); CREATININE FOR GFR 0.73 MG/DL (0.55-1.30); GLOMERULAR FILTRATION RATE > 60.0 (>32); GLUCOSE, FASTING 93 MG/DL (74-106); POTASSIUM SERUM 3.9 MMOL/L (3.5-5.1); SODIUM LEVEL 138 MMOL/L (136-145); TOTAL PROTEIN 5.8 G/DL (5.7-8.2)
[2023-06-16] MEDS: INSULIN LISPRO (NovoLOG) PER UNIT SC SCH ×4 (07:30→21:00)
[2023-06-16] MEDS: ONDANSETRON 4MG 2ML VIAL IV PRN (09:18)
[2023-06-16] MEDS: DOXYCYCLINE HYCLATE 100MG TABLET PO SCH ×2 (09:20→21:31)
[2023-06-16] MEDS: APIXABAN 5 MG TAB (ELIQUIS) PO SCH ×2 (09:20→21:31)
[2023-06-16] MEDS: OMEPRAZOLE 20MG CAP PO SCH (09:20)
[2023-06-16] MEDS: CARVedilol 6.25 MG TAB PO SCH ×2 (09:20→21:35)
[2023-06-16] MEDS: TORSEMIDE 20 MG TAB PO SCH (09:20)
[2023-06-16] MEDS: MICONAZOLE 2 % POWDER (DESENEX) TOP SCH ×2 (09:21→21:36)
[2023-06-16] MEDS ORDERED: ONDANSETRON 4MG ORAL DISINTEGRATING TAB SL PRN (11:40)
[2023-06-16] MEDS ORDERED: MIRALAX *UNIT DOSE* 17GM PACKET PO PRN (11:40)
[2023-06-16] MEDS: PERCOCET 5MG/325MG TAB PO PRN (11:47)
[2023-06-16] MEDS ORDERED: MIRALAX *UNIT DOSE* 17GM PACKET PO ONE (12:00)
[2023-06-16] MEDS: DOCUSATE SODIUM 100MG CAPSULE PO SCH ×2 (12:11→21:31)
[2023-06-16] MEDS: ONDANSETRON 4MG ORAL DISINTEGRATING TAB SL SCH (12:34)
[2023-06-16] MEDS: SENNA 8.6 MG TAB (SENOKOT) PO SCH (21:00)
[2023-06-16] MEDS: LEVEMIR (INSULIN DETEMIR) 1 UNITS/0.01ML SC SCH (21:36)
[2023-06-17 05:05] VITALS: BP 126/66; TEMP 97; O2SAT 96
[2023-06-17] MEDS: LevoFLOXacin 750 MG TABLET PO SCH (06:05)
[2023-06-17 06:54] LABS: HEMATOCRIT 37.4 % (36.0-47.0); MEAN CORPUSCULAR HEMOGLOBIN 29.3 pg (27.0-33.0); MEAN CORPUSCULAR HGB CONC 32.1 g/dl (32.0-36.5); MEAN CORPUSCULAR VOLUME 91.4 fl (80.0-96.0); PLATELET COUNT, AUTOMATED 224 10^3/uL (150-450); RED BLOOD COUNT 4.09 10^6/uL (4.00-5.40); WHITE BLOOD COUNT 8.6 10^3/uL (4.0-10.0)
[2023-06-17 07:09] LABS: ALBUMIN 2.1 G/DL (3.2-5.2); ALKALINE PHOSPHATASE 133 U/L (46-116); ALT/SGPT 19 U/L (7.0-40); AST/SGOT 22 U/L (<34); BILIRUBIN,TOTAL 0.9 MG/DL (0.3-1.2); BLOOD UREA NITROGEN 16 MG/DL (9-23); CALCIUM LEVEL 8.4 MG/DL (8.3-10.6); CARBON DIOXIDE LEVEL 35 MMOL/L (20-31); CHLORIDE LEVEL 103 MMOL/L (98-107); CREATININE FOR GFR 0.84 MG/DL (0.55-1.30); GLOMERULAR FILTRATION RATE > 60.0 (>32); GLUCOSE, FASTING 91 MG/DL (74-106); POTASSIUM SERUM 3.9 MMOL/L (3.5-5.1); SODIUM LEVEL 141 MMOL/L (136-145)
[2023-06-17] MEDS: INSULIN LISPRO (NovoLOG) PER UNIT SC SCH ×4 (07:30→20:42)
[2023-06-17] MEDS: MICONAZOLE 2 % POWDER (DESENEX) TOP SCH ×2 (08:59→21:19)
[2023-06-17] MEDS: OMEPRAZOLE 20MG CAP PO SCH (09:00)
[2023-06-17] MEDS: APIXABAN 5 MG TAB (ELIQUIS) PO SCH ×2 (09:00→21:17)
[2023-06-17] MEDS: DOXYCYCLINE HYCLATE 100MG TABLET PO SCH ×2 (09:00→21:17)
[2023-06-17] MEDS: TORSEMIDE 20 MG TAB PO SCH (09:00)
[2023-06-17] MEDS: DOCUSATE SODIUM 100MG CAPSULE PO SCH ×2 (09:00→21:00)
[2023-06-17] MEDS: CARVedilol 6.25 MG TAB PO SCH ×2 (09:01→21:17)
[2023-06-17] MEDS: ONDANSETRON 4MG ORAL DISINTEGRATING TAB SL SCH (10:19)
[2023-06-17] MEDS: PERCOCET 5MG/325MG TAB PO PRN (11:05)
[2023-06-17] MEDS: SENNA 8.6 MG TAB (SENOKOT) PO SCH (21:00)
[2023-06-17] MEDS: LEVEMIR (INSULIN DETEMIR) 1 UNITS/0.01ML SC SCH (21:17)
[2023-06-18 05:11] VITALS: BP 126/69; TEMP 97.5; O2SAT 96
[2023-06-18] MEDS: LevoFLOXacin 750 MG TABLET PO SCH (05:39)
[2023-06-18 06:30] LABS: HEMATOCRIT 35.5 % (36.0-47.0); HEMOGLOBIN 11.4 g/dl (12.0-15.5); MEAN CORPUSCULAR HEMOGLOBIN 29.3 pg (27.0-33.0); MEAN CORPUSCULAR HGB CONC 32.1 g/dl (32.0-36.5); MEAN CORPUSCULAR VOLUME 91.3 fl (80.0-96.0); PLATELET COUNT, AUTOMATED 205 10^3/uL (150-450); RED BLOOD COUNT 3.89 10^6/uL (4.00-5.40); WHITE BLOOD COUNT 6.7 10^3/uL (4.0-10.0)
[2023-06-18 07:10] LABS: ALBUMIN 2.1 G/DL (3.2-5.2); ALKALINE PHOSPHATASE 115 U/L (46-116); ALT/SGPT 14 U/L (7.0-40); AST/SGOT 18 U/L (<34); BILIRUBIN,TOTAL 0.8 MG/DL (0.3-1.2); BLOOD UREA NITROGEN 18 MG/DL (9-23); CALCIUM LEVEL 8.2 MG/DL (8.3-10.6); CARBON DIOXIDE LEVEL 35 MMOL/L (20-31); CHLORIDE LEVEL 103 MMOL/L (98-107); CREATININE FOR GFR 0.84 MG/DL (0.55-1.30); GLOMERULAR FILTRATION RATE > 60.0 (>32); GLUCOSE, FASTING 85 MG/DL (74-106); POTASSIUM SERUM 3.8 MMOL/L (3.5-5.1); SODIUM LEVEL 141 MMOL/L (136-145); TOTAL PROTEIN 5.7 G/DL (5.7-8.2)
[2023-06-18] MEDS: INSULIN LISPRO (NovoLOG) PER UNIT SC SCH ×4 (09:24→21:00)
[2023-06-18] MEDS: DOCUSATE SODIUM 100MG CAPSULE PO SCH ×2 (09:35→20:07)
[2023-06-18] MEDS: TORSEMIDE 20 MG TAB PO SCH (09:36)
[2023-06-18] MEDS: APIXABAN 5 MG TAB (ELIQUIS) PO SCH ×2 (09:36→20:06)
[2023-06-18] MEDS: OMEPRAZOLE 20MG CAP PO SCH (09:36)
[2023-06-18] MEDS: CARVedilol 6.25 MG TAB PO SCH ×2 (09:37→20:08)
[2023-06-18] MEDS: DOXYCYCLINE HYCLATE 100MG TABLET PO SCH ×2 (09:38→20:07)
[2023-06-18] MEDS: MICONAZOLE 2 % POWDER (DESENEX) TOP SCH ×2 (09:39→20:09)
[2023-06-18] MEDS: ONDANSETRON 4MG ORAL DISINTEGRATING TAB SL SCH (12:54)
[2023-06-18] MEDS: SENNA 8.6 MG TAB (SENOKOT) PO SCH (20:07)
[2023-06-18] MEDS: LEVEMIR (INSULIN DETEMIR) 1 UNITS/0.01ML SC SCH (20:08)
[2023-06-19 05:00] VITALS: BP 126/70; TEMP 97.7; O2SAT 95
[2023-06-19] MEDS: LevoFLOXacin 750 MG TABLET PO SCH (05:17)
[2023-06-19 06:10] LABS: HEMATOCRIT 36.2 % (36.0-47.0); HEMOGLOBIN 11.4 g/dl (12.0-15.5); MEAN CORPUSCULAR HEMOGLOBIN 28.5 pg (27.0-33.0); MEAN CORPUSCULAR HGB CONC 31.5 g/dl (32.0-36.5); MEAN CORPUSCULAR VOLUME 90.5 fl (80.0-96.0); PLATELET COUNT, AUTOMATED 211 10^3/uL (150-450); WHITE BLOOD COUNT 6.1 10^3/uL (4.0-10.0)
[2023-06-19 06:41] LABS: ALBUMIN 2.2 G/DL (3.2-5.2); ALKALINE PHOSPHATASE 110 U/L (46-116); ALT/SGPT 14 U/L (7.0-40); AST/SGOT 19 U/L (<34); BILIRUBIN,TOTAL 0.7 MG/DL (0.3-1.2); BLOOD UREA NITROGEN 16 MG/DL (9-23); CALCIUM LEVEL 8.4 MG/DL (8.3-10.6); CARBON DIOXIDE LEVEL 32 MMOL/L (20-31); CHLORIDE LEVEL 103 MMOL/L (98-107); GLOMERULAR FILTRATION RATE > 60.0 (>32); GLUCOSE, FASTING 139 MG/DL (74-106); POTASSIUM SERUM 3.7 MMOL/L (3.5-5.1); SODIUM LEVEL 140 MMOL/L (136-145)
[2023-06-19] MEDS: INSULIN LISPRO (NovoLOG) PER UNIT SC SCH ×4 (08:46→20:32)
[2023-06-19] MEDS: DOXYCYCLINE HYCLATE 100MG TABLET PO SCH ×2 (08:47→20:38)
[2023-06-19] MEDS: APIXABAN 5 MG TAB (ELIQUIS) PO SCH ×2 (08:47→20:36)
[2023-06-19] MEDS: TORSEMIDE 20 MG TAB PO SCH (08:47)
[2023-06-19] MEDS: OMEPRAZOLE 20MG CAP PO SCH (08:47)
[2023-06-19] MEDS: DOCUSATE SODIUM 100MG CAPSULE PO SCH ×2 (08:47→20:37)
[2023-06-19] MEDS: MICONAZOLE 2 % POWDER (DESENEX) TOP SCH ×2 (08:48→20:39)
[2023-06-19] MEDS: CARVedilol 6.25 MG TAB PO SCH ×2 (08:48→20:37)
[2023-06-19] MEDS: ONDANSETRON 4MG ORAL DISINTEGRATING TAB SL SCH (13:33)
[2023-06-19] MEDS: PERCOCET 5MG/325MG TAB PO PRN (15:51)
[2023-06-19] MEDS: LEVEMIR (INSULIN DETEMIR) 1 UNITS/0.01ML SC SCH (20:36)
[2023-06-19] MEDS: SENNA 8.6 MG TAB (SENOKOT) PO SCH (20:38)
[2023-06-20 05:37] VITALS: BP 147/63; TEMP 98.2; O2SAT 93
[2023-06-20] MEDS: LevoFLOXacin 750 MG TABLET PO SCH (06:02)
[2023-06-20 06:24] LABS: HEMATOCRIT 36.1 % (36.0-47.0); HEMOGLOBIN 11.4 g/dl (12.0-15.5); MEAN CORPUSCULAR HEMOGLOBIN 28.8 pg (27.0-33.0); MEAN CORPUSCULAR HGB CONC 31.6 g/dl (32.0-36.5); MEAN CORPUSCULAR VOLUME 91.2 fl (80.0-96.0); PLATELET COUNT, AUTOMATED 197 10^3/uL (150-450); RED BLOOD COUNT 3.96 10^6/uL (4.00-5.40)
[2023-06-20 06:40] LABS: ALBUMIN 2.3 G/DL (3.2-5.2); ALKALINE PHOSPHATASE 102 U/L (46-116); ALT/SGPT 14 U/L (7.0-40); AST/SGOT 17 U/L (<34); BILIRUBIN,TOTAL 0.7 MG/DL (0.3-1.2); BLOOD UREA NITROGEN 15 MG/DL (9-23); CALCIUM LEVEL 8.7 MG/DL (8.3-10.6); CARBON DIOXIDE LEVEL 31 MMOL/L (20-31); CHLORIDE LEVEL 104 MMOL/L (98-107); CREATININE FOR GFR 0.84 MG/DL (0.55-1.30); GLOMERULAR FILTRATION RATE > 60.0 (>32); GLUCOSE, FASTING 116 MG/DL (74-106); POTASSIUM SERUM 3.6 MMOL/L (3.5-5.1); SODIUM LEVEL 141 MMOL/L (136-145); TOTAL PROTEIN 5.9 G/DL (5.7-8.2)
[2023-06-20] MEDS: INSULIN LISPRO (NovoLOG) PER UNIT SC SCH ×2 (07:30→12:39)
[2023-06-20] MEDS: OMEPRAZOLE 20MG CAP PO SCH (09:23)
[2023-06-20] MEDS: MICONAZOLE 2 % POWDER (DESENEX) TOP SCH (09:23)
[2023-06-20] MEDS: APIXABAN 5 MG TAB (ELIQUIS) PO SCH (09:23)
[2023-06-20] MEDS: DOXYCYCLINE HYCLATE 100MG TABLET PO SCH (09:23)
[2023-06-20 09:24] VITALS: BP 126/66
[2023-06-20] MEDS: TORSEMIDE 20 MG TAB PO SCH (09:24)
[2023-06-20] MEDS: CARVedilol 6.25 MG TAB PO SCH (09:24)
[2023-06-20] MEDS: DOCUSATE SODIUM 100MG CAPSULE PO SCH (09:25)
[2023-06-20] MEDS: ONDANSETRON 4MG ORAL DISINTEGRATING TAB SL SCH (12:31)
[2023-06-20] MEDS ORDERED: LEVO1TAB40 PO (13:31)
[2023-06-20] MEDS ORDERED: TRAM50TA2 PO (13:31)
[2023-06-20] MEDS ORDERED: DOXY100T PO (13:31)
[2023-06-20] MEDS ORDERED: COLA100C5 PO (13:31)
[2023-06-20] MEDS ORDERED: PROB250C PO (13:32)
== END 2023-06-20 16:09 | disposition home health service (06) | DRG 872 ==
LOC: M ED 08:26 → M ED INP 14:37 → ENRESERV 06-07 14:46 → M MSPAV 06-07 15:40 → M PCU 06-08 15:13 → M MSPAV 06-15 14:15
PROVIDERS: ADMIT Internal Medicine; ATTEND Internal Medicine
DX: A41.9 Sepsis, unspecified organism (principal); E87.1 Hypo-osmolality and hyponatremia; L03.116 Cellulitis of left lower limb; L97.929 Non-pressure chronic ulcer of unspecified part of left lower leg with unspecified severity; N17.9 Acute kidney failure, unspecified; Z68.42 Body mass index [BMI] 45.0-49.9, adult; E87.3 Alkalosis; I24.89 Other forms of acute ischemic heart disease; I48.91 Unspecified atrial fibrillation; I10 Essential (primary) hypertension; E11.42 Type 2 diabetes mellitus with diabetic polyneuropathy; K21.9 Gastro-esophageal reflux disease without esophagitis; I25.10 Atherosclerotic heart disease of native coronary artery without angina pectoris; K52.9 Noninfective gastroenteritis and colitis, unspecified; G47.33 Obstructive sleep apnea (adult) (pediatric); R65.20 Severe sepsis without septic shock; E88.09 Other disorders of plasma-protein metabolism, not elsewhere classified; E66.01 Morbid (severe) obesity due to excess calories; K59.00 Constipation, unspecified; R91.1 Solitary pulmonary nodule; Z79.01 Long term (current) use of anticoagulants; I87.2 Venous insufficiency (chronic) (peripheral); Z88.2 Allergy status to sulfonamides; Z79.899 Other long term (current) drug therapy; K44.9 Diaphragmatic hernia without obstruction or gangrene; Z95.2 Presence of prosthetic heart valve; R23.8 Other skin changes; D64.9 Anemia, unspecified; B96.4 Proteus (mirabilis) (morganii) as the cause of diseases classified elsewhere; E87.6 Hypokalemia

== ENCOUNTER → 2023-07-20 | Outpatient (CLI) | payer MEDICARE, OTHER ==
[~2023-07-20] MED LIST: AMLO1TAB24; AMLO1TAB24 PO; CARV6.25; CARV6.25 PO; COLA100C5 PO; DOXY100T PO; ELIQ5TAB; ELIQ5TAB PO; GABA-282; GABA-282 PO; LEVO1TAB40 PO; LOSA100T46; LOSA100T46 PO; OMEP-173; OMEP1CAP73 PO; PIOG1TAB36; PIOG1TAB36 PO; PROB250C PO; REPA1TAB4; REPA1TAB4 PO; TORS20TA2; TORS20TA2 PO; TRAM50TA2 PO
== END ==
LOC: M RAD 14:24
PROVIDERS: ATTEND Physician Assistant
DX: L97.222 Non-pressure chronic ulcer of left calf with fat layer exposed (principal); R68.89 Other general symptoms and signs

== ENCOUNTER 2023-09-16 13:32 | Inpatient (IN) | payer MEDICARE, OTHER ==
[~2023-09-16] VITALS: Ht 167.6 cm; Wt 121.8 kg
[2023-09-16 15:02] LABS: BASO % 0.2 % (0.0-1.0); EOS % 0.1 % (0.0-3.0); HEMATOCRIT 42.3 % (36.0-47.0); HEMOGLOBIN 12.8 g/dl (12.0-15.5); LYMPH # 0.5 10^3/uL (1.5-5.0); MEAN CORPUSCULAR HEMOGLOBIN 27.9 pg (27.0-33.0); MEAN CORPUSCULAR HGB CONC 30.3 g/dl (32.0-36.5); MEAN CORPUSCULAR VOLUME 92.2 fl (80.0-96.0); MONO # 0.6 10^3/uL (0.0-0.8); MONO % 6.4 % (2.0-8.0); NEUTROPHILS # 7.8 10^3/uL (1.5-8.5); NEUTROPHILS % 86.6 % (36.0-66.0); PLATELET COUNT, AUTOMATED 116 10^3/uL (150-450); RED BLOOD COUNT 4.59 10^6/uL (4.00-5.40)
[2023-09-16 15:29] LABS: ALBUMIN 3.2 G/DL (3.2-5.2); ALKALINE PHOSPHATASE 108 U/L (46-116); ALT/SGPT 12 U/L (7.0-40); AST/SGOT 21 U/L (<34); BILIRUBIN,DIRECT 0.4 MG/DL (<0.4); BILIRUBIN,TOTAL 0.9 MG/DL (0.3-1.2); BLOOD UREA NITROGEN 13 MG/DL (9-23); CARBON DIOXIDE LEVEL 32 MMOL/L (20-31); CHLORIDE LEVEL 102 MMOL/L (98-107); CK-MB VALUE MASS < 1.0 NG/ML (<3.6); CREATININE FOR GFR 0.59 MG/DL (0.55-1.30); GLOMERULAR FILTRATION RATE > 60.0 (>32); GLUCOSE, FASTING 260 MG/DL (74-106); POTASSIUM SERUM 4.4 MMOL/L (3.5-5.1); SODIUM LEVEL 136 MMOL/L (136-145); TOTAL PROTEIN 6.8 G/DL (5.7-8.2)
[2023-09-16 15:31] LABS: THYROID STIMULATING HORMONE 1.433 uIU/ML (0.55-4.78); THYROXINE (T4) 9.2 UG/DL (4.5-10.9)
[2023-09-16 15:36] LABS: CPK CREATINE PHOSPHOKINASE 40 U/L (34-145)
[2023-09-16] MEDS ORDERED: FUROSEMIDE 40MG/4ML VIAL IV ONE (16:00)
[2023-09-16] MEDS ORDERED: MED REC IN PROGRESS XX SCH (16:45)
[2023-09-16] MEDS ORDERED: COMBIVENT RESPIMAT 100-20MCG INHALER 4GM INH PRN (17:15)
[2023-09-16] MEDS ORDERED: GLUCOSE 4GM CHEW TABLET PO PRN (17:15)
[2023-09-16] MEDS ORDERED: DEXTROSE 50% 50ML SYRINGE IV PRN (17:15)
[2023-09-16] MEDS ORDERED: GLUCAGON INJ 1MG VIAL SC PRN (17:15)
[2023-09-16 17:16] LABS: CK-MB VALUE MASS < 1.0 NG/ML (<3.6)
[2023-09-16 17:20] LABS: CPK CREATINE PHOSPHOKINASE 32 U/L (34-145); MB/CK RELATIVE INDEX 3.12 (< OR =4)
[2023-09-16] MEDS: dexAMETHasone 20MG/5ML VIAL IV SCH (18:23)
[2023-09-16] MEDS: cefTRIAXone SOD 2 GM in D5W MINI-BAG PLUS 50 ML IV SCH (18:24)
[2023-09-16] MEDS: AZITHROMYCIN 250MG TABLET PO SCH (18:24)
[2023-09-16 18:35] LABS: PROCALCITONIN 0.05 ng/ml
[2023-09-16] MEDS: INSULIN LISPRO (NovoLOG) PER UNIT SC SCH ×2 (18:36→21:00)
[2023-09-16] MEDS ORDERED: BENZ200C70 PO (18:45)
[2023-09-16] MEDS ORDERED: POTA-298 PO (18:45)
[2023-09-16] MEDS ORDERED: ALBU8.5H INH (18:45)
[2023-09-16] MEDS ORDERED: SENN-186 PO (18:47)
[2023-09-16] MEDS ORDERED: HOME MED LIST COMPLETE! XX SCH (18:50)
[2023-09-16 20:00] VITALS: BP 128/59; TEMP 97.6; O2SAT 96
[2023-09-16] MEDS ORDERED: REMDESIVIR 200 MG in NS 250 ML IV ONE (20:00)
[2023-09-16] MEDS: APIXABAN 5 MG TAB (ELIQUIS) PO SCH (20:08)
[2023-09-16] MEDS: CARVedilol 6.25 MG TAB PO SCH (20:09)
[2023-09-16] MEDS: COMBIVENT RESPIMAT 100-20MCG INHALER 4GM INH SCH (20:50)
[2023-09-17] VITALS: BP 123/56; TEMP 96.9; O2SAT 93
[2023-09-17 04:00] VITALS: BP 120/74; TEMP 96.9; O2SAT 94
[2023-09-17 05:55] LABS: HEMATOCRIT 40.3 % (36.0-47.0); HEMOGLOBIN 12.1 g/dl (12.0-15.5); MEAN CORPUSCULAR HEMOGLOBIN 27.9 pg (27.0-33.0); MEAN CORPUSCULAR VOLUME 92.9 fl (80.0-96.0); RED BLOOD COUNT 4.34 10^6/uL (4.00-5.40); WHITE BLOOD COUNT 6.4 10^3/uL (4.0-10.0)
[2023-09-17 06:13] LABS: BLOOD UREA NITROGEN 18 MG/DL (9-23); CALCIUM LEVEL 8.6 MG/DL (8.3-10.6); CARBON DIOXIDE LEVEL 34 MMOL/L (20-31); CHLORIDE LEVEL 102 MMOL/L (98-107); GLOMERULAR FILTRATION RATE > 60.0 (>32); GLUCOSE, FASTING 333 MG/DL (74-106); POTASSIUM SERUM 4.7 MMOL/L (3.5-5.1); SODIUM LEVEL 139 MMOL/L (136-145)
[2023-09-17 06:19] LABS: PROCALCITONIN 0.08 ng/ml
[2023-09-17 06:29] LABS: PLATELET COUNT, AUTOMATED 97 10^3/uL (150-450)
[2023-09-17] MEDS: COMBIVENT RESPIMAT 100-20MCG INHALER 4GM INH SCH ×4 (07:42→20:24)
[2023-09-17 08:27] VITALS: BP 132/72; TEMP 97.8; O2SAT 99
[2023-09-17] MEDS: INSULIN LISPRO (NovoLOG) PER UNIT SC SCH ×4 (08:42→20:32)
[2023-09-17] MEDS: acetaZOLAMIDE 500MG ER CAP PO SCH ×2 (08:42→20:27)
[2023-09-17] MEDS: FUROSEMIDE 40MG/4ML VIAL IV SCH ×2 (08:42→18:00)
[2023-09-17] MEDS: AZITHROMYCIN 250MG TABLET PO SCH (08:42)
[2023-09-17] MEDS: APIXABAN 5 MG TAB (ELIQUIS) PO SCH ×2 (08:43→20:28)
[2023-09-17] MEDS: CARVedilol 6.25 MG TAB PO SCH ×2 (08:43→20:28)
[2023-09-17] MEDS: dexAMETHasone 20MG/5ML VIAL IV SCH (08:56)
[2023-09-17] MEDS ORDERED: ENOXAPARIN 40MG/0.4ML SYRINGE (J1650 PER 10MG) SC SCH (09:00)
[2023-09-17 12:24] VITALS: BP 119/59; TEMP 98; O2SAT 96
[2023-09-17 15:11] VITALS: BP 125/75; TEMP 97.8; O2SAT 97
[2023-09-17] MEDS ORDERED: BENZONATATE 100MG CAPSULE PO PRN (15:30)
[2023-09-17] MEDS ORDERED: SENNA 8.6 MG TAB (SENOKOT) PO PRN (15:30)
[2023-09-17] MEDS ORDERED: traMADol 50 MG TAB PO PRN (15:30)
[2023-09-17] MEDS: cefTRIAXone SOD 2 GM in D5W MINI-BAG PLUS 50 ML IV SCH (18:00)
[2023-09-17] MEDS: amLODIPine 5 MG TAB PO SCH (18:08)
[2023-09-17] MEDS: POTASSIUM CHLORIDE 10MEQ SR TABLET PO SCH (18:08)
[2023-09-17] MEDS: OMEPRAZOLE 20MG CAP PO SCH (18:08)
[2023-09-17] MEDS: REMDESIVIR 100 MG in NS 250 ML IV SCH (18:44)
[2023-09-17 20:00] VITALS: BP 114/60; TEMP 97.3; O2SAT 96
[2023-09-17] MEDS: DOCUSATE SODIUM 100MG CAPSULE PO SCH (20:28)
[2023-09-17] MEDS: LEVEMIR (INSULIN DETEMIR) 1 UNITS/0.01ML SC SCH (20:30)
[2023-09-18] VITALS (8 sets, daily range): BP systolic 111–135; BP diastolic 60–81; TEMP 96.9–98.5; O2SAT 93–96
[2023-09-18] MEDS: COMBIVENT RESPIMAT 100-20MCG INHALER 4GM INH SCH ×4 (07:49→22:22)
[2023-09-18] MEDS: FUROSEMIDE 40MG/4ML VIAL IV SCH ×2 (08:51→16:26)
[2023-09-18] MEDS: AZITHROMYCIN 250MG TABLET PO SCH (08:52)
[2023-09-18] MEDS: INSULIN LISPRO (NovoLOG) PER UNIT SC SCH ×4 (08:52→21:07)
[2023-09-18] MEDS: LEVEMIR (INSULIN DETEMIR) 1 UNITS/0.01ML SC SCH ×2 (08:52→21:06)
[2023-09-18] MEDS: OMEPRAZOLE 20MG CAP PO SCH (08:52)
[2023-09-18] MEDS: CARVedilol 6.25 MG TAB PO SCH ×2 (08:53→21:06)
[2023-09-18] MEDS: APIXABAN 5 MG TAB (ELIQUIS) PO SCH ×2 (08:53→21:05)
[2023-09-18] MEDS: POTASSIUM CHLORIDE 10MEQ SR TABLET PO SCH (08:55)
[2023-09-18] MEDS: amLODIPine 5 MG TAB PO SCH (08:55)
[2023-09-18] MEDS: DOCUSATE SODIUM 100MG CAPSULE PO SCH ×2 (08:56→21:05)
[2023-09-18] MEDS: dexAMETHasone 20MG/5ML VIAL IV SCH (09:04)
[2023-09-18 10:30] LABS: BASO % 0.1 % (0.0-1.0); HEMATOCRIT 39.2 % (36.0-47.0); HEMOGLOBIN 12.2 g/dl (12.0-15.5); LYMPH # 0.5 10^3/uL (1.5-5.0); LYMPH % 4.6 % (24.0-44.0); MEAN CORPUSCULAR HGB CONC 31.1 g/dl (32.0-36.5); MEAN CORPUSCULAR VOLUME 89.9 fl (80.0-96.0); MONO # 0.6 10^3/uL (0.0-0.8); MONO % 4.8 % (2.0-8.0); NEUTROPHILS # 10.3 10^3/uL (1.5-8.5); PLATELET COUNT, AUTOMATED 121 10^3/uL (150-450); RED BLOOD COUNT 4.36 10^6/uL (4.00-5.40); WHITE BLOOD COUNT 11.4 10^3/uL (4.0-10.0)
[2023-09-18 11:29] LABS: BLOOD UREA NITROGEN 30 MG/DL (9-23); CARBON DIOXIDE LEVEL 29 MMOL/L (20-31); CHLORIDE LEVEL 98 MMOL/L (98-107); CREATININE FOR GFR 0.75 MG/DL (0.55-1.30); GLOMERULAR FILTRATION RATE > 60.0 (>32); GLUCOSE, FASTING 371 MG/DL (74-106); POTASSIUM SERUM 4.4 MMOL/L (3.5-5.1); SODIUM LEVEL 133 MMOL/L (136-145)
[2023-09-18] MEDS: cefTRIAXone SOD 2 GM in D5W MINI-BAG PLUS 50 ML IV SCH (16:23)
[2023-09-18] MEDS: REMDESIVIR 100 MG in NS 250 ML IV SCH (17:20)
[2023-09-19 04:00] VITALS: BP 126/58; TEMP 96.6; O2SAT 92
[2023-09-19 05:59] LABS: BASO % 0.1 % (0.0-1.0); HEMATOCRIT 38.5 % (36.0-47.0); LYMPH # 0.6 10^3/uL (1.5-5.0); LYMPH % 6.5 % (24.0-44.0); MEAN CORPUSCULAR HEMOGLOBIN 27.7 pg (27.0-33.0); MEAN CORPUSCULAR HGB CONC 31.2 g/dl (32.0-36.5); MEAN CORPUSCULAR VOLUME 88.9 fl (80.0-96.0); MONO # 0.4 10^3/uL (0.0-0.8); MONO % 4.8 % (2.0-8.0); NEUTROPHILS # 7.8 10^3/uL (1.5-8.5); PLATELET COUNT, AUTOMATED 136 10^3/uL (150-450); RED BLOOD COUNT 4.33 10^6/uL (4.00-5.40); WHITE BLOOD COUNT 8.8 10^3/uL (4.0-10.0)
[2023-09-19 06:17] LABS: BLOOD UREA NITROGEN 30 MG/DL (9-23); CALCIUM LEVEL 9.1 MG/DL (8.3-10.6); CARBON DIOXIDE LEVEL 32 MMOL/L (20-31); CHLORIDE LEVEL 99 MMOL/L (98-107); GLOMERULAR FILTRATION RATE > 60.0 (>32); GLUCOSE, FASTING 313 MG/DL (74-106); POTASSIUM SERUM 4.1 MMOL/L (3.5-5.1); SODIUM LEVEL 136 MMOL/L (136-145)
[2023-09-19] MEDS: COMBIVENT RESPIMAT 100-20MCG INHALER 4GM INH SCH ×4 (07:27→20:36)
[2023-09-19 08:24] VITALS: BP 128/75; TEMP 97.7; O2SAT 94
[2023-09-19] MEDS: OMEPRAZOLE 20MG CAP PO SCH (09:09)
[2023-09-19] MEDS: AZITHROMYCIN 250MG TABLET PO SCH (09:09)
[2023-09-19] MEDS: APIXABAN 5 MG TAB (ELIQUIS) PO SCH ×2 (09:10→20:18)
[2023-09-19] MEDS: amLODIPine 5 MG TAB PO SCH (09:10)
[2023-09-19] MEDS: CARVedilol 6.25 MG TAB PO SCH ×2 (09:10→20:20)
[2023-09-19] MEDS: POTASSIUM CHLORIDE 10MEQ SR TABLET PO SCH (09:10)
[2023-09-19] MEDS: DOCUSATE SODIUM 100MG CAPSULE PO SCH ×2 (09:10→20:18)
[2023-09-19] MEDS: FUROSEMIDE 40MG/4ML VIAL IV SCH ×2 (09:11→18:23)
[2023-09-19] MEDS: dexAMETHasone 20MG/5ML VIAL IV SCH (09:11)
[2023-09-19] MEDS: INSULIN LISPRO (NovoLOG) PER UNIT SC SCH ×4 (09:11→20:21)
[2023-09-19] MEDS: LEVEMIR (INSULIN DETEMIR) 1 UNITS/0.01ML SC SCH ×2 (09:12→20:20)
[2023-09-19 12:00] VITALS: O2SAT 94
[2023-09-19] MEDS: CEFDINIR 300 MG CAP (OMNICEF) PO SCH ×2 (12:32→20:28)
[2023-09-19 15:42] VITALS: BP 130/79; TEMP 97.8; O2SAT 93
[2023-09-19] MEDS: REMDESIVIR 100 MG in NS 250 ML IV SCH (18:24)
[2023-09-19 20:21] VITALS: BP 132/86; TEMP 97.3; O2SAT 96
[2023-09-19 21:25] VITALS: BP 112/75; TEMP 97.5; O2SAT 95
[2023-09-20 05:58] VITALS: BP 116/74; TEMP 97.3; O2SAT 96
[2023-09-20 06:14] LABS: BASO % 0.1 % (0.0-1.0); HEMATOCRIT 38.5 % (36.0-47.0); LYMPH # 0.6 10^3/uL (1.5-5.0); LYMPH % 6.2 % (24.0-44.0); MEAN CORPUSCULAR HEMOGLOBIN 27.7 pg (27.0-33.0); MEAN CORPUSCULAR HGB CONC 31.2 g/dl (32.0-36.5); MEAN CORPUSCULAR VOLUME 88.9 fl (80.0-96.0); MONO # 0.5 10^3/uL (0.0-0.8); MONO % 5.2 % (2.0-8.0); NEUTROPHILS # 7.9 10^3/uL (1.5-8.5); NEUTROPHILS % 87.9 % (36.0-66.0); PLATELET COUNT, AUTOMATED 128 10^3/uL (150-450); RED BLOOD COUNT 4.33 10^6/uL (4.00-5.40)
[2023-09-20 06:46] LABS: BLOOD UREA NITROGEN 32 MG/DL (9-23); CALCIUM LEVEL 8.6 MG/DL (8.3-10.6); CARBON DIOXIDE LEVEL 31 MMOL/L (20-31); CHLORIDE LEVEL 102 MMOL/L (98-107); GLOMERULAR FILTRATION RATE > 60.0 (>32); GLUCOSE, FASTING 302 MG/DL (74-106); POTASSIUM SERUM 3.9 MMOL/L (3.5-5.1); SODIUM LEVEL 137 MMOL/L (136-145)
[2023-09-20] MEDS: COMBIVENT RESPIMAT 100-20MCG INHALER 4GM INH SCH ×2 (07:42→11:45)
[2023-09-20] MEDS: DOCUSATE SODIUM 100MG CAPSULE PO SCH (07:42)
[2023-09-20] MEDS: POTASSIUM CHLORIDE 10MEQ SR TABLET PO SCH (07:43)
[2023-09-20] MEDS: APIXABAN 5 MG TAB (ELIQUIS) PO SCH (07:43)
[2023-09-20 07:44] VITALS: BP 116/74
[2023-09-20] MEDS: CEFDINIR 300 MG CAP (OMNICEF) PO SCH (07:44)
[2023-09-20] MEDS: amLODIPine 5 MG TAB PO SCH (07:44)
[2023-09-20] MEDS: CARVedilol 6.25 MG TAB PO SCH (07:44)
[2023-09-20] MEDS: AZITHROMYCIN 250MG TABLET PO SCH (07:44)
[2023-09-20] MEDS: INSULIN LISPRO (NovoLOG) PER UNIT SC SCH ×2 (07:45→11:50)
[2023-09-20] MEDS: OMEPRAZOLE 20MG CAP PO SCH (07:45)
[2023-09-20] MEDS: LEVEMIR (INSULIN DETEMIR) 1 UNITS/0.01ML SC SCH (07:45)
[2023-09-20] MEDS: dexAMETHasone 20MG/5ML VIAL IV SCH (07:46)
[2023-09-20] MEDS: FUROSEMIDE 40MG/4ML VIAL IV SCH (07:52)
[2023-09-20] MEDS ORDERED: LEVEMIR (INSULIN DETEMIR) 1 UNITS/0.01ML SC ONE (09:00)
[2023-09-20] MEDS ORDERED: PEN-308 SC (09:55)
[2023-09-20] MEDS ORDERED: TORS20TA2 PO (09:55)
[2023-09-20] MEDS ORDERED: GLUC1TES2 XX (09:55)
[2023-09-20] MEDS ORDERED: LANTINJ4 SC (09:55)
[2023-09-20] MEDS ORDERED: ALCOPAD25 TOP (09:55)
[2023-09-20] MEDS ORDERED: DEXA4TA PO ×2 (09:55→10:02)
[2023-09-20] MEDS ORDERED: LANCMIS33 TOP (09:55)
[2023-09-20] MEDS ORDERED: BLOOKIT21 XX (09:55)
[2023-09-20] MEDS ORDERED: CEFD300CAP PO (10:44)
[2023-09-20] MEDS: REMDESIVIR 100 MG in NS 250 ML IV SCH (11:22)
[2023-09-20] MEDS ORDERED: INSULIN LISPRO (NovoLOG) PER UNIT SC STA (11:42)
[2023-09-20] MEDS ORDERED: HUMA100I5 SC ×2 (11:47→14:27)
[2023-09-20 14:00] VITALS: BP 122/72; TEMP 97.7; O2SAT 96
[2023-09-20] MEDS ORDERED: LEVEMIR (INSULIN DETEMIR) 1 UNITS/0.01ML SC SCH (21:00)
== END 2023-09-20 15:09 | disposition home or self-care (01) | DRG 177 ==
LOC: M ED 13:32 → EDBD 13:32 → M ED INP 16:31 → M PCU 19:22 → M MSPAV 09-19 21:22
PROVIDERS: ADMIT Internal Medicine; ATTEND Internal Medicine
DX: U07.1 COVID-19 (principal); J96.01 Acute respiratory failure with hypoxia; J15.9 Unspecified bacterial pneumonia; I50.33 Acute on chronic diastolic (congestive) heart failure; Z68.41 Body mass index [BMI] 40.0-44.9, adult; J98.11 Atelectasis; E11.9 Type 2 diabetes mellitus without complications; I11.0 Hypertensive heart disease with heart failure; E66.9 Obesity, unspecified; I25.10 Atherosclerotic heart disease of native coronary artery without angina pectoris; I48.91 Unspecified atrial fibrillation; K21.9 Gastro-esophageal reflux disease without esophagitis; G89.29 Other chronic pain; K74.60 Unspecified cirrhosis of liver; Z79.01 Long term (current) use of anticoagulants; I27.20 Pulmonary hypertension, unspecified; Z79.899 Other long term (current) drug therapy; Z79.4 Long term (current) use of insulin; Z88.2 Allergy status to sulfonamides

== ENCOUNTER → 2023-10-27 | Outpatient (REF) | payer MEDICARE, OTHER ==
[~2023-10-27] MED LIST changes: +ALBU8.5H INH; +ALCOPAD25 TOP; +BENZ200C70 PO; +BLOOKIT21 XX; +CEFD300CAP PO; +DEXA4TA PO; +GLUC1TES2 XX; +HUMA100I5 SC; +LANCMIS33 TOP; +LANTINJ4 SC; +PEN-308 SC; +POTA-298 PO; +SENN-186 PO
[2023-10-27 17:10] LABS: BLOOD UREA NITROGEN 15 MG/DL (9-23); CALCIUM LEVEL 8.7 MG/DL (8.3-10.6); CARBON DIOXIDE LEVEL 33 MMOL/L (20-31); CHLORIDE LEVEL 100 MMOL/L (98-107); CREATININE FOR GFR 0.72 MG/DL (0.55-1.30); GLOMERULAR FILTRATION RATE > 60.0 (>32); GLUCOSE, FASTING 192 MG/DL (74-106); MAGNESIUM LEVEL 1.9 MG/DL (1.8-2.4); POTASSIUM SERUM 4.2 MMOL/L (3.5-5.1); SODIUM LEVEL 137 MMOL/L (136-145)
== END ==
LOC: M SHH 15:08
PROVIDERS: ATTEND Physician Assistant
DX: I50.32 Chronic diastolic (congestive) heart failure (principal); I48.21 Permanent atrial fibrillation

== ENCOUNTER → 2024-01-12 | Outpatient (REF) | payer MEDICARE, OTHER ==
[2024-01-12 16:37] LABS: CREATININE, URINE 126.8 MG/DL
== END ==
LOC: M LAB REF 15:02
PROVIDERS: ATTEND Nurse Practitioner Family
DX: E11.9 Type 2 diabetes mellitus without complications (principal)

== ENCOUNTER 2024-04-08 20:23 | Inpatient (IN) | payer MEDICARE, OTHER ==
[~2024-04-08] VITALS: Ht 170.2 cm; Wt 113.6 kg
[2024-04-08] MEDS: ONDANSETRON 4MG 2ML VIAL IV ONE (21:06)
[2024-04-08] MEDS: MORPHINE 4 MG/ML 1ML VIAL IV ONE ×2 (21:07→23:14)
[2024-04-08 21:21] LABS: BASO % 0.3 % (0.0-1.0); EOS # 0.1 10^3/uL (0.0-0.5); EOS % 0.7 % (0.0-3.0); HEMATOCRIT 40.8 % (36.0-47.0); HEMOGLOBIN 13.1 g/dl (12.0-15.5); LYMPH % 9.3 % (24.0-44.0); MEAN CORPUSCULAR HEMOGLOBIN 28.2 pg (27.0-33.0); MEAN CORPUSCULAR HGB CONC 32.1 g/dl (32.0-36.5); MEAN CORPUSCULAR VOLUME 87.7 fl (80.0-96.0); MONO # 0.6 10^3/uL (0.0-0.8); MONO % 5.2 % (2.0-8.0); NEUTROPHILS # 8.9 10^3/uL (1.5-8.5); NEUTROPHILS % 83.5 % (36.0-66.0); PLATELET COUNT, AUTOMATED 155 10^3/uL (150-450); RED BLOOD COUNT 4.65 10^6/uL (4.00-5.40); WHITE BLOOD COUNT 10.7 10^3/uL (4.0-10.0)
[2024-04-08 21:35] LABS: INR 1.22; PARTIAL THROMBOPLASTIN TIME 28.2 SECONDS (24.8-34.2); PROTHROMBIN TIME 15.1 SECONDS (12.5-14.5)
[2024-04-08 21:51] LABS: ALBUMIN 3.4 G/DL (3.2-5.2); BILIRUBIN,DIRECT 0.2 MG/DL (<0.4); BILIRUBIN,TOTAL 0.7 MG/DL (0.3-1.2); CALCIUM LEVEL 8.8 MG/DL (8.3-10.6); CREATININE FOR GFR 1.17 MG/DL (0.55-1.30); GLOMERULAR FILTRATION RATE 47.3 (>32); TOTAL PROTEIN 6.6 G/DL (5.7-8.2)
[2024-04-09] VITALS (7 sets, daily range): BP systolic 109–130; BP diastolic 56–69; TEMP 97.2–97.8; O2SAT 92–97
[2024-04-09] MEDS ORDERED: INSU100I24 INJ (00:33)
[2024-04-09] MEDS ORDERED: LANTINJ4 SC (00:33)
[2024-04-09] MEDS ORDERED: HOME MED LIST COMPLETE! XX SCH (00:35)
[2024-04-09] MEDS ORDERED: GLUCAGON INJ 1MG VIAL SC PRN ×2 (02:10→17:20)
[2024-04-09] MEDS ORDERED: DEXTROSE 50% 50ML SYRINGE IV PRN ×2 (02:10→17:20)
[2024-04-09] MEDS ORDERED: GLUCOSE 4 GM CHEW PO PRN ×2 (02:10→17:20)
[2024-04-09] MEDS: NS 1,000 ML IV SCH (05:47)
[2024-04-09] MEDS: INSULIN LISPRO (NovoLOG) PER UNIT SC SCH ×2 (05:57→21:19)
[2024-04-09] MEDS ORDERED: TORSEMIDE 20 MG TAB PO SCH (09:00)
[2024-04-09] MEDS: CARVedilol 6.25 MG TAB PO SCH (09:39)
[2024-04-09] MEDS: DOCUSATE SODIUM 100MG CAPSULE PO SCH (09:39)
[2024-04-09] MEDS: OMEPRAZOLE 20MG CAP PO SCH (09:39)
[2024-04-09] MEDS: GABAPENTIN 300 MG CAP PO SCH (09:40)
[2024-04-09] MEDS: amLODIPine 5 MG TAB PO SCH (09:40)
[2024-04-09] MEDS: HYDROMORPHONE HCL 0.5 MG/ 0.5 ML SYRINGE IV PRN (09:41)
[2024-04-09] MEDS: LEVEMIR (INSULIN DETEMIR) 1 UNITS/0.01ML SC SCH (10:03)
[2024-04-09 10:27] LABS: BASO % 0.2 % (0.0-1.0); EOS % 0.2 % (0.0-3.0); HEMATOCRIT 40.3 % (36.0-47.0); HEMOGLOBIN 12.8 g/dl (12.0-15.5); LYMPH # 1.4 10^3/uL (1.5-5.0); LYMPH % 8.6 % (24.0-44.0); MEAN CORPUSCULAR HEMOGLOBIN 28.1 pg (27.0-33.0); MEAN CORPUSCULAR HGB CONC 31.8 g/dl (32.0-36.5); MEAN CORPUSCULAR VOLUME 88.4 fl (80.0-96.0); MONO % 6.2 % (2.0-8.0); NEUTROPHILS # 13.2 10^3/uL (1.5-8.5); NEUTROPHILS % 83.8 % (36.0-66.0); PLATELET COUNT, AUTOMATED 156 10^3/uL (150-450); RED BLOOD COUNT 4.56 10^6/uL (4.00-5.40); WHITE BLOOD COUNT 15.7 10^3/uL (4.0-10.0)
[2024-04-09 10:55] LABS: BLOOD UREA NITROGEN 18 MG/DL (9-23); CALCIUM LEVEL 8.8 MG/DL (8.3-10.6); CARBON DIOXIDE LEVEL 28 MMOL/L (20-31); CHLORIDE LEVEL 103 MMOL/L (98-107); CREATININE FOR GFR 0.86 MG/DL (0.55-1.30); GLOMERULAR FILTRATION RATE > 60.0 (>32); GLUCOSE, FASTING 257 MG/DL (74-106); MAGNESIUM LEVEL 1.9 MG/DL (1.8-2.4); POTASSIUM SERUM 4.1 MMOL/L (3.5-5.1); SODIUM LEVEL 137 MMOL/L (136-145)
[2024-04-09] MEDS ORDERED: fentaNYL 100 MCG/2 ML INJECTION As Ordered ONE (15:14)
[2024-04-09] MEDS ORDERED: propofoL 200 MG/20 ML VIAL As Ordered ONE (15:15)
[2024-04-09] MEDS ORDERED: LIDOCAINE 2% 100MG/5ML SDV (FOR ANES.) As Ordered ONE (15:15)
[2024-04-09] MEDS ORDERED: ROCURONIUM BROMIDE 50MG/5ML VIAL As Ordered ONE (15:16)
[2024-04-09] MEDS ORDERED: ONDANSETRON 4MG 2ML VIAL As Ordered ONE (15:17)
[2024-04-09] MEDS: ceFAZolin 2 GM/D5W 50 ML IV BAG As Ordered ONE (15:45)
[2024-04-09] MEDS: ceFAZolin 1GM VIAL As Ordered ONE (15:45)
[2024-04-09] MEDS ORDERED: ACETAMINOPHEN 1000MG 100ML IV BAG As Ordered ONE (15:54)
[2024-04-09] MEDS ORDERED: PHENYLephrine 500MCG 5ML (100MCG/ML) SYRINGE As Ordered ONE (15:58)
[2024-04-09] MEDS ORDERED: SUGAMMADEX SODIUM 500 MG/5 ML VIAL (BRIDION) As Ordered ONE (16:58)
[2024-04-09] MEDS: INSULIN LISPRO (NovoLOG) PER UNIT SC PRN (17:45)
[2024-04-09] MEDS: ASPIRIN 81MG ENTERIC TABLET PO SCH (21:18)
[2024-04-09] MEDS: LOSARTAN 50MG TABLET PO SCH (21:18)
[2024-04-09] MEDS: ceFAZolin SOD 2 GM in IV 1 EA IV SCH (23:36)
[2024-04-10 03:30] VITALS: BP 124/61; TEMP 97.9; O2SAT 93
[2024-04-10 06:18] LABS: BASO % 0.1 % (0.0-1.0); LYMPH # 0.9 10^3/uL (1.5-5.0); LYMPH % 5.9 % (24.0-44.0); MEAN CORPUSCULAR HEMOGLOBIN 28.6 pg (27.0-33.0); MEAN CORPUSCULAR HGB CONC 32.3 g/dl (32.0-36.5); MEAN CORPUSCULAR VOLUME 88.6 fl (80.0-96.0); MONO # 0.8 10^3/uL (0.0-0.8); MONO % 5.4 % (2.0-8.0); NEUTROPHILS # 12.6 10^3/uL (1.5-8.5); PLATELET COUNT, AUTOMATED 145 10^3/uL (150-450); RED BLOOD COUNT 3.67 10^6/uL (4.00-5.40); WHITE BLOOD COUNT 14.3 10^3/uL (4.0-10.0)
[2024-04-10] MEDS: ACETAMINOPHEN TAB 650MG DOSE (2X325MG) PO PRN (06:19)
[2024-04-10 06:40] LABS: HEMATOCRIT 32.5 % (36.0-47.0); HEMOGLOBIN 10.5 g/dl (12.0-15.5)
[2024-04-10 06:42] LABS: BLOOD UREA NITROGEN 21 MG/DL (9-23); CALCIUM LEVEL 8.6 MG/DL (8.3-10.6); CARBON DIOXIDE LEVEL 31 MMOL/L (20-31); CHLORIDE LEVEL 104 MMOL/L (98-107); CREATININE FOR GFR 0.86 MG/DL (0.55-1.30); GLOMERULAR FILTRATION RATE > 60.0 (>32); GLUCOSE, FASTING 262 MG/DL (74-106); MAGNESIUM LEVEL 1.9 MG/DL (1.8-2.4); POTASSIUM SERUM 4.1 MMOL/L (3.5-5.1); SODIUM LEVEL 140 MMOL/L (136-145)
[2024-04-10 06:49] LABS: ALBUMIN 2.7 G/DL (3.2-5.2); ALKALINE PHOSPHATASE 84 U/L (46-116); ALT/SGPT 20 U/L (7.0-40); AST/SGOT 52 U/L (<34); BILIRUBIN,TOTAL 1.1 MG/DL (0.3-1.2); BLOOD UREA NITROGEN 21 MG/DL (9-23); CALCIUM LEVEL 8.6 MG/DL (8.3-10.6); CARBON DIOXIDE LEVEL 30 MMOL/L (20-31); CHLORIDE LEVEL 103 MMOL/L (98-107); CREATININE FOR GFR 0.84 MG/DL (0.55-1.30); GLOMERULAR FILTRATION RATE > 60.0 (>32); GLUCOSE, FASTING 259 MG/DL (74-106); PHOSPHORUS LEVEL 3.8 MG/DL (2.4-5.1); POTASSIUM SERUM 4.1 MMOL/L (3.5-5.1); SODIUM LEVEL 140 MMOL/L (136-145); TOTAL PROTEIN 5.3 G/DL (5.7-8.2)
[2024-04-10 08:00] VITALS: BP 109/61; TEMP 97.3; O2SAT 93
[2024-04-10] MEDS: INSULIN LISPRO (NovoLOG) PER UNIT SC SCH (08:49)
[2024-04-10 12:00] VITALS: BP 126/104; TEMP 97.5; O2SAT 92
[2024-04-10] MEDS ORDERED: PERCOCET 5MG/325MG TAB PO PRN (12:05)
[2024-04-10] MEDS: FAMOTIDINE 20 MG TAB PO ONE (14:24)
[2024-04-10 20:02] VITALS: BP 130/66; TEMP 97.7; O2SAT 91
[2024-04-10] MEDS: APIXABAN 5 MG TAB (ELIQUIS) PO SCH (21:07)
[2024-04-10] MEDS: CARVedilol 12.5 MG TAB PO SCH (21:07)
[2024-04-10] MEDS: LEVEMIR (INSULIN DETEMIR) 1 UNITS/0.01ML SC SCH (21:08)
[2024-04-10] MEDS: PERCOCET 5MG/325MG TAB PO PRN (22:46)
[2024-04-11 01:10] VITALS: O2SAT 84
[2024-04-11 01:12] VITALS: O2SAT 92
[2024-04-11 03:40] VITALS: BP 113/65; TEMP 96.8; O2SAT 96
[2024-04-11 06:45] LABS: BASO % 0.2 % (0.0-1.0); EOS # 0.1 10^3/uL (0.0-0.5); EOS % 0.9 % (0.0-3.0); LYMPH # 1.1 10^3/uL (1.5-5.0); LYMPH % 8.2 % (24.0-44.0); MEAN CORPUSCULAR HEMOGLOBIN 28.7 pg (27.0-33.0); MEAN CORPUSCULAR HGB CONC 32.3 g/dl (32.0-36.5); MEAN CORPUSCULAR VOLUME 88.8 fl (80.0-96.0); MONO # 1.1 10^3/uL (0.0-0.8); MONO % 8.5 % (2.0-8.0); NEUTROPHILS # 10.4 10^3/uL (1.5-8.5); NEUTROPHILS % 81.1 % (36.0-66.0); PLATELET COUNT, AUTOMATED 138 10^3/uL (150-450); RED BLOOD COUNT 3.49 10^6/uL (4.00-5.40); WHITE BLOOD COUNT 12.8 10^3/uL (4.0-10.0)
[2024-04-11 07:07] LABS: ALBUMIN 2.6 G/DL (3.2-5.2); ALKALINE PHOSPHATASE 77 U/L (46-116); ALT/SGPT 16 U/L (7.0-40); AST/SGOT 32 U/L (<34); BILIRUBIN,TOTAL 0.9 MG/DL (0.3-1.2); BLOOD UREA NITROGEN 29 MG/DL (9-23); CALCIUM LEVEL 8.4 MG/DL (8.3-10.6); CARBON DIOXIDE LEVEL 30 MMOL/L (20-31); CHLORIDE LEVEL 101 MMOL/L (98-107); CREATININE FOR GFR 0.82 MG/DL (0.55-1.30); GLOMERULAR FILTRATION RATE > 60.0 (>32); GLUCOSE, FASTING 228 MG/DL (74-106); SODIUM LEVEL 135 MMOL/L (136-145); TOTAL PROTEIN 5.3 G/DL (5.7-8.2)
[2024-04-11 08:53] VITALS: BP 141/73
[2024-04-11] MEDS: CALCIUM CARBONATE 500 MG CHEW U/D PO PRN (10:47)
[2024-04-11] MEDS ORDERED: CARV12.5 PO (11:33)
[2024-04-11] MEDS ORDERED: SENN1TAB96 PO (11:33)
[2024-04-11] MEDS ORDERED: POLY17PO18 PO (11:33)
[2024-04-11 12:45] VITALS: BP 86/60; TEMP 97; O2SAT 91
[2024-04-11 14:10] VITALS: BP 113/76
== END 2024-04-11 16:06 | DRG 481 ==
LOC: M ED 20:23 → EDBD 20:23 → M ED INP 04-09 01:37 → M MSPAV 04-09 17:53
PROVIDERS: ADMIT Internal Medicine; ATTEND Internal Medicine
PROC: BQ14ZZZ Fluoroscopy of Left Femur (ICD-10-PCS; 2024-04-09)
PROC: 0QS734Z Reposition Left Upper Femur with Internal Fixation Device, Percutaneous Approach (ICD-10-PCS; principal; 2024-04-09 15:00)
DX: S72.142A Displaced intertrochanteric fracture of left femur, initial encounter for closed fracture (principal); I50.32 Chronic diastolic (congestive) heart failure; E11.42 Type 2 diabetes mellitus with diabetic polyneuropathy; W01.0XXA Fall on same level from slipping, tripping and stumbling without subsequent striking against object, initial encounter; Y92.009 Unspecified place in unspecified non-institutional (private) residence as the place of occurrence of the external cause; Y93.9 Activity, unspecified; I48.91 Unspecified atrial fibrillation; I11.0 Hypertensive heart disease with heart failure; I25.10 Atherosclerotic heart disease of native coronary artery without angina pectoris; K44.9 Diaphragmatic hernia without obstruction or gangrene; G47.33 Obstructive sleep apnea (adult) (pediatric); K21.9 Gastro-esophageal reflux disease without esophagitis; Z90.79 Acquired absence of other genital organ(s); Z90.49 Acquired absence of other specified parts of digestive tract; Z79.01 Long term (current) use of anticoagulants; Z79.4 Long term (current) use of insulin; Z79.899 Other long term (current) drug therapy; Z88.2 Allergy status to sulfonamides; D64.9 Anemia, unspecified; K59.00 Constipation, unspecified; M19.90 Unspecified osteoarthritis, unspecified site; M54.50 Low back pain, unspecified; G89.29 Other chronic pain

== ENCOUNTER 2024-04-11 10:11 | Inpatient (IN) | payer MEDICARE, OTHER ==
[~2024-04-11] VITALS: Ht 170.2 cm; Wt 133.4 kg
[~2024-04-11 10:11] MED LIST changes: +INSU100I24 INJ
[2024-04-11] MEDS ORDERED: CARV12.5 PO (11:33)
[2024-04-11] MEDS ORDERED: SENN1TAB96 PO (11:33)
[2024-04-11] MEDS ORDERED: POLY17PO18 PO (11:33)
[2024-04-11] MEDS ORDERED: CALCIUM CARBONATE 500 MG CHEW U/D PO PRN (11:45)
[2024-04-11] MEDS ORDERED: GLUCAGON INJ 1MG VIAL SC PRN (11:45)
[2024-04-11] MEDS ORDERED: DEXTROSE 50% 50ML SYRINGE IV PRN (11:45)
[2024-04-11] MEDS ORDERED: GLUCOSE 4 GM CHEW PO PRN (11:45)
[2024-04-11 16:00] VITALS: BP 131/68; TEMP 99.6; O2SAT 93
[2024-04-11] MEDS: ACETAMINOPHEN 500 MG TAB PO SCH (16:00)
[2024-04-11] MEDS: ACETAMINOPHEN TAB 650MG DOSE (2X325MG) PO SCH (16:00)
[2024-04-11] MEDS: INSULIN LISPRO (NovoLOG) PER UNIT SC SCH ×2 (16:53→21:22)
[2024-04-11 20:00] VITALS: BP 123/76; TEMP 97.5; O2SAT 94
[2024-04-11] MEDS: SENOKOT S TAB PO SCH (21:21)
[2024-04-11] MEDS: APIXABAN 5 MG TAB (ELIQUIS) PO SCH (21:21)
[2024-04-11] MEDS: GABAPENTIN 300 MG CAP PO SCH (21:21)
[2024-04-11] MEDS: CARVedilol 12.5 MG TAB PO SCH (21:23)
[2024-04-12 04:00] VITALS: BP 137/82; TEMP 97.1; O2SAT 94
[2024-04-12] MEDS: oxyCODONE 5MG TAB PO PRN ×2 (05:25→21:26)
[2024-04-12] MEDS: LEVEMIR (INSULIN DETEMIR) 1 UNITS/0.01ML SC SCH ×2 (07:13→21:23)
[2024-04-12] MEDS: amLODIPine 5 MG TAB PO SCH (07:14)
[2024-04-12] MEDS: OMEPRAZOLE 20MG CAP PO SCH (07:15)
[2024-04-12 07:36] LABS: HEMATOCRIT 30.6 % (36.0-47.0); HEMOGLOBIN 9.7 g/dl (12.0-15.5); MEAN CORPUSCULAR HEMOGLOBIN 28.2 pg (27.0-33.0); MEAN CORPUSCULAR HGB CONC 31.7 g/dl (32.0-36.5); PLATELET COUNT, AUTOMATED 158 10^3/uL (150-450); RED BLOOD COUNT 3.44 10^6/uL (4.00-5.40); WHITE BLOOD COUNT 12.8 10^3/uL (4.0-10.0)
[2024-04-12 07:58] LABS: BLOOD UREA NITROGEN 30 MG/DL (9-23); CALCIUM LEVEL 8.2 MG/DL (8.3-10.6); CARBON DIOXIDE LEVEL 29 MMOL/L (20-31); CHLORIDE LEVEL 100 MMOL/L (98-107); CREATININE FOR GFR 0.75 MG/DL (0.55-1.30); GLOMERULAR FILTRATION RATE > 60.0 (>32); GLUCOSE, FASTING 283 MG/DL (74-106); POTASSIUM SERUM 4.5 MMOL/L (3.5-5.1); SODIUM LEVEL 133 MMOL/L (136-145)
[2024-04-12 08:02] LABS: HEMOGLOBIN A1c 7.8 % (4.0-6.0)
[2024-04-12] MEDS: MIRALAX *UNIT DOSE* 17GM PACKET PO SCH (11:46)
[2024-04-12] MEDS: TORSEMIDE 20 MG TAB PO SCH (12:31)
[2024-04-12 13:38] LABS: HEMATOCRIT 30.5 % (36.0-47.0); HEMOGLOBIN 9.8 g/dl (12.0-15.5); MEAN CORPUSCULAR HEMOGLOBIN 28.6 pg (27.0-33.0); MEAN CORPUSCULAR HGB CONC 32.1 g/dl (32.0-36.5); MEAN CORPUSCULAR VOLUME 88.9 fl (80.0-96.0); PLATELET COUNT, AUTOMATED 161 10^3/uL (150-450); RED BLOOD COUNT 3.43 10^6/uL (4.00-5.40); WHITE BLOOD COUNT 13.2 10^3/uL (4.0-10.0)
[2024-04-12 14:01] LABS: BLOOD UREA NITROGEN 31 MG/DL (9-23); CALCIUM LEVEL 8.4 MG/DL (8.3-10.6); CARBON DIOXIDE LEVEL 30 MMOL/L (20-31); CHLORIDE LEVEL 99 MMOL/L (98-107); CREATININE FOR GFR 0.75 MG/DL (0.55-1.30); GLOMERULAR FILTRATION RATE > 60.0 (>32); GLUCOSE, FASTING 259 MG/DL (74-106); POTASSIUM SERUM 4.1 MMOL/L (3.5-5.1); SODIUM LEVEL 134 MMOL/L (136-145)
[2024-04-12 14:46] VITALS: BP 123/71; TEMP 98.8; O2SAT 94
[2024-04-12] MEDS: BISACODYL 5MG TAB PO PRN (18:12)
[2024-04-12 20:00] VITALS: BP 124/57; TEMP 97.5; O2SAT 98
[2024-04-13 04:00] VITALS: BP 112/56; TEMP 96.2; O2SAT 97
[2024-04-13] MEDS: MOM 30ML SUSPENSION UDC PO PRN (06:34)
[2024-04-13 13:57] VITALS: BP 136/68; TEMP 97.6; O2SAT 97
[2024-04-13 20:00] VITALS: BP 124/65; TEMP 97; O2SAT 96
[2024-04-13] MEDS: INSULIN LISPRO (NovoLOG) PER UNIT SC SCH (20:30)
[2024-04-14 04:00] VITALS: BP 129/73; TEMP 97; O2SAT 98
[2024-04-14] MEDS: INSULIN LISPRO (NovoLOG) PER UNIT SC SCH (09:01)
[2024-04-14 12:00] VITALS: BP 150/110; TEMP 96.9; O2SAT 99
[2024-04-14 20:00] VITALS: BP 107/57; TEMP 97.9; O2SAT 98
[2024-04-15 04:16] VITALS: BP 150/70; TEMP 96.3; O2SAT 96
[2024-04-15 12:00] VITALS: BP 138/82; TEMP 97.9; O2SAT 97
[2024-04-15 20:00] VITALS: BP 127/57; TEMP 97.6; O2SAT 97
[2024-04-16 04:00] VITALS: BP 136/58; TEMP 97.5; O2SAT 99
[2024-04-16] MEDS: DICLOFENAC EPOLAMINE 1.3% PATCH TOP SCH (09:00)
[2024-04-16 11:29] LABS: HEMATOCRIT 32.6 % (36.0-47.0); HEMOGLOBIN 10.2 g/dl (12.0-15.5); MEAN CORPUSCULAR HEMOGLOBIN 28.3 pg (27.0-33.0); MEAN CORPUSCULAR HGB CONC 31.3 g/dl (32.0-36.5); MEAN CORPUSCULAR VOLUME 90.6 fl (80.0-96.0); PLATELET COUNT, AUTOMATED 194 10^3/uL (150-450); WHITE BLOOD COUNT 12.5 10^3/uL (4.0-10.0)
[2024-04-16 11:58] LABS: BLOOD UREA NITROGEN 20 MG/DL (9-23); CALCIUM LEVEL 8.1 MG/DL (8.3-10.6); CARBON DIOXIDE LEVEL 30 MMOL/L (20-31); CHLORIDE LEVEL 100 MMOL/L (98-107); CREATININE FOR GFR 0.72 MG/DL (0.55-1.30); GLOMERULAR FILTRATION RATE > 60.0 (>32); GLUCOSE, FASTING 259 MG/DL (74-106); POTASSIUM SERUM 4.2 MMOL/L (3.5-5.1); SODIUM LEVEL 136 MMOL/L (136-145)
[2024-04-16 12:00] VITALS: BP 120/65; TEMP 97.1; O2SAT 96
[2024-04-16] MEDS: VITAMIN D 50,000 UNITS CAPSULE (ERGOCALCIFEROL 1.25MG) PO SCH (17:11)
[2024-04-16 20:00] VITALS: BP 121/58; TEMP 97.9; O2SAT 100
[2024-04-17 04:00] VITALS: BP 110/58; TEMP 97.4; O2SAT 98
[2024-04-17 12:00] VITALS: BP 128/56; TEMP 98; O2SAT 96
[2024-04-17] MEDS: INSULIN LISPRO (NovoLOG) PER UNIT SC SCH (17:10)
[2024-04-17 20:17] VITALS: BP 144/71; TEMP 97.2; O2SAT 98
[2024-04-17] MEDS: LEVEMIR (INSULIN DETEMIR) 1 UNITS/0.01ML SC SCH (20:30)
[2024-04-17] MEDS: MAALOX 30 ML SUSP *UDC PO PRN (21:35)
[2024-04-18 04:00] VITALS: BP 126/65; TEMP 97.3; O2SAT 96
[2024-04-18] MEDS: LEVEMIR (INSULIN DETEMIR) 1 UNITS/0.01ML SC SCH (07:39)
[2024-04-18 12:00] VITALS: BP 126/52; TEMP 97.8; O2SAT 96
[2024-04-18 20:00] VITALS: BP 119/58; TEMP 97.7; O2SAT 98
[2024-04-18] MEDS: methocarbamoL 500 MG TAB PO PRN (20:03)
[2024-04-19 04:00] VITALS: BP 126/69; TEMP 97; O2SAT 98
[2024-04-19 12:00] VITALS: BP 119/58; TEMP 97.3; O2SAT 95
[2024-04-19 20:00] VITALS: BP 130/80; TEMP 98.1; O2SAT 97
[2024-04-19] MEDS: LEVEMIR (INSULIN DETEMIR) 1 UNITS/0.01ML SC SCH (20:52)
[2024-04-20 04:00] VITALS: BP 116/58; TEMP 97.1; O2SAT 96
[2024-04-20 07:40] LABS: HEMATOCRIT 32.4 % (36.0-47.0); HEMOGLOBIN 10.1 g/dl (12.0-15.5); MEAN CORPUSCULAR HEMOGLOBIN 28.6 pg (27.0-33.0); MEAN CORPUSCULAR HGB CONC 31.2 g/dl (32.0-36.5); MEAN CORPUSCULAR VOLUME 91.8 fl (80.0-96.0); PLATELET COUNT, AUTOMATED 195 10^3/uL (150-450); RED BLOOD COUNT 3.53 10^6/uL (4.00-5.40); WHITE BLOOD COUNT 9.3 10^3/uL (4.0-10.0)
[2024-04-20 08:12] LABS: BLOOD UREA NITROGEN 18 MG/DL (9-23); CALCIUM LEVEL 8.5 MG/DL (8.3-10.6); CARBON DIOXIDE LEVEL 31 MMOL/L (20-31); CHLORIDE LEVEL 100 MMOL/L (98-107); CREATININE FOR GFR 0.79 MG/DL (0.55-1.30); GLOMERULAR FILTRATION RATE > 60.0 (>32); GLUCOSE, FASTING 205 MG/DL (74-106); POTASSIUM SERUM 4.1 MMOL/L (3.5-5.1); SODIUM LEVEL 135 MMOL/L (136-145)
[2024-04-20 12:00] VITALS: BP 110/59; TEMP 97.5; O2SAT 98
[2024-04-20 19:59] VITALS: BP 115/57; TEMP 97.1; O2SAT 97
[2024-04-21 04:30] VITALS: BP 114/73; TEMP 97; O2SAT 96
[2024-04-21 12:00] VITALS: BP 115/59; TEMP 97; O2SAT 100
[2024-04-21 20:00] VITALS: BP 108/61; TEMP 97.2; O2SAT 96
[2024-04-22 04:00] VITALS: BP 124/61; TEMP 97.1; O2SAT 96
[2024-04-22 12:00] VITALS: BP 101/52; TEMP 97.9; O2SAT 97
[2024-04-22 20:00] VITALS: BP 121/63; TEMP 97.7; O2SAT 98
[2024-04-23 04:00] VITALS: BP 121/69; TEMP 97; O2SAT 96
[2024-04-23] MEDS: ONDANSETRON 4MG TAB PO PRN (07:40)
[2024-04-23 07:58] LABS: HEMATOCRIT 33.9 % (36.0-47.0); HEMOGLOBIN 10.4 g/dl (12.0-15.5); MEAN CORPUSCULAR HEMOGLOBIN 28.7 pg (27.0-33.0); MEAN CORPUSCULAR HGB CONC 30.7 g/dl (32.0-36.5); MEAN CORPUSCULAR VOLUME 93.6 fl (80.0-96.0); PLATELET COUNT, AUTOMATED 210 10^3/uL (150-450); RED BLOOD COUNT 3.62 10^6/uL (4.00-5.40); WHITE BLOOD COUNT 7.5 10^3/uL (4.0-10.0)
[2024-04-23 08:21] LABS: BLOOD UREA NITROGEN 16 MG/DL (9-23); CALCIUM LEVEL 8.8 MG/DL (8.3-10.6); CARBON DIOXIDE LEVEL 31 MMOL/L (20-31); CHLORIDE LEVEL 101 MMOL/L (98-107); CREATININE FOR GFR 0.77 MG/DL (0.55-1.30); GLOMERULAR FILTRATION RATE > 60.0 (>32); GLUCOSE, FASTING 167 MG/DL (74-106); MAGNESIUM LEVEL 2.5 MG/DL (1.8-2.4); POTASSIUM SERUM 4.1 MMOL/L (3.5-5.1); SODIUM LEVEL 138 MMOL/L (136-145)
[2024-04-23 12:00] VITALS: BP 102/56; TEMP 98.5; O2SAT 94
[2024-04-23] MEDS ORDERED: OXYC-517 PO (12:55)
[2024-04-23] MEDS ORDERED: DRIS50003 PO (12:55)
[2024-04-23] MEDS ORDERED: ACET-683 PO (12:55)
[2024-04-23] MEDS ORDERED: METH-1164 PO (12:55)
[2024-04-23 20:00] VITALS: BP 125/61; TEMP 97.5; O2SAT 97
[2024-04-24 04:00] VITALS: BP 108/63; TEMP 97; O2SAT 94
[2024-04-24 08:16] VITALS: BP 118/72
[2024-04-24] MEDS ORDERED: LANTINJ4 SC (09:07)
[2024-04-24] MEDS ORDERED: INSU100I24 INJ (09:07)
== END 2024-04-24 09:30 | disposition home health service (06) | DRG 560 ==
LOC: M PM&R 16:00
PROVIDERS: ADMIT Student in an Organized Health Care Education/Training Program; ATTEND Student in an Organized Health Care Education/Training Program
DX: S72.142D Displaced intertrochanteric fracture of left femur, subsequent encounter for closed fracture with routine healing (principal); Z68.41 Body mass index [BMI] 40.0-44.9, adult; I50.32 Chronic diastolic (congestive) heart failure; Z74.1 Need for assistance with personal care; Z74.09 Other reduced mobility; K59.00 Constipation, unspecified; I48.91 Unspecified atrial fibrillation; E11.42 Type 2 diabetes mellitus with diabetic polyneuropathy; I11.0 Hypertensive heart disease with heart failure; I25.10 Atherosclerotic heart disease of native coronary artery without angina pectoris; K44.9 Diaphragmatic hernia without obstruction or gangrene; G47.33 Obstructive sleep apnea (adult) (pediatric); M17.12 Unilateral primary osteoarthritis, left knee; K21.9 Gastro-esophageal reflux disease without esophagitis; E66.9 Obesity, unspecified; D64.9 Anemia, unspecified; E11.65 Type 2 diabetes mellitus with hyperglycemia; Z90.49 Acquired absence of other specified parts of digestive tract; Z90.79 Acquired absence of other genital organ(s); Z79.01 Long term (current) use of anticoagulants; Z79.4 Long term (current) use of insulin; Z79.899 Other long term (current) drug therapy; Z88.2 Allergy status to sulfonamides; Z96.642 Presence of left artificial hip joint; M54.9 Dorsalgia, unspecified; G89.29 Other chronic pain

== ENCOUNTER → 2024-04-27 | Outpatient (CLI) | payer MEDICARE, OTHER ==
[~2024-04-27] MED LIST changes: +ACET-683 PO; +CARV12.5 PO; +DRIS50003 PO; +METH-1164 PO; +OXYC-517 PO; +POLY17PO18 PO; +SENN1TAB96 PO
== END ==
LOC: M SOG 09:55
PROVIDERS: ATTEND Orthopaedic Surgery
DX: S72.142D Displaced intertrochanteric fracture of left femur, subsequent encounter for closed fracture with routine healing (principal)

== ENCOUNTER → 2024-05-28 | Outpatient (CLI) | payer MEDICARE, OTHER | LOC: M SOG 07:25 | PROVIDERS: ATTEND Orthopaedic Surgery | DX: S72.142D Displaced intertrochanteric fracture of left femur, subsequent encounter for closed fracture with routine healing (principal); Z47.89 Encounter for other orthopedic aftercare ==

== ENCOUNTER → 2024-07-11 | Outpatient (CLI) | payer MEDICARE, OTHER ==
[~2024-07-11] MED LIST changes: +GABA-1172; +GABA-1172 PO; -GABA-282; -GABA-282 PO
== END ==
LOC: M SOG 07:27
PROVIDERS: ATTEND Orthopaedic Surgery
DX: S72.142D Displaced intertrochanteric fracture of left femur, subsequent encounter for closed fracture with routine healing (principal)

== ENCOUNTER → 2024-09-10 | Outpatient (CLI) | payer MEDICARE, OTHER | LOC: M SOG 07:50 | PROVIDERS: ATTEND Orthopaedic Surgery | DX: S72.142D Displaced intertrochanteric fracture of left femur, subsequent encounter for closed fracture with routine healing (principal) ==

== ENCOUNTER 2024-09-15 13:22 | Inpatient (IN) | payer MEDICARE, OTHER ==
[~2024-09-15] VITALS: Ht 170.2 cm; Wt 125.5 kg
[2024-09-15 14:26] LABS: BASO % 0.3 % (0.0-1.0); EOS # 0.1 10^3/uL (0.0-0.5); EOS % 1.3 % (0.0-3.0); HEMATOCRIT 37.8 % (36.0-47.0); HEMOGLOBIN 11.3 g/dl (12.0-15.5); LYMPH # 0.7 10^3/uL (1.5-5.0); LYMPH % 7.5 % (24.0-44.0); MEAN CORPUSCULAR HEMOGLOBIN 24.9 pg (27.0-33.0); MEAN CORPUSCULAR HGB CONC 29.9 g/dl (32.0-36.5); MEAN CORPUSCULAR VOLUME 83.4 fl (80.0-96.0); MONO # 0.7 10^3/uL (0.0-0.8); MONO % 7.3 % (2.0-8.0); NEUTROPHILS # 8.1 10^3/uL (1.5-8.5); NEUTROPHILS % 83.1 % (36.0-66.0); PLATELET COUNT, AUTOMATED 151 10^3/uL (150-450); RED BLOOD COUNT 4.53 10^6/uL (4.00-5.40); WHITE BLOOD COUNT 9.8 10^3/uL (4.0-10.0)
[2024-09-15 14:44] LABS: CK-MB VALUE MASS 2.2 NG/ML (<3.6)
[2024-09-15 14:46] LABS: ALBUMIN 3.4 G/DL (3.2-5.2); ALKALINE PHOSPHATASE 131 U/L (35-104); ALT/SGPT 12 U/L (7.0-40); AST/SGOT 34 U/L (<34); BILIRUBIN,DIRECT 0.4 MG/DL (<0.4); BILIRUBIN,TOTAL 0.9 MG/DL (0.3-1.2); BLOOD UREA NITROGEN 23 MG/DL (9-23); CALCIUM LEVEL 8.9 MG/DL (8.3-10.6); CARBON DIOXIDE LEVEL 32 MMOL/L (20-31); CHLORIDE LEVEL 101 MMOL/L (98-107); CREATININE FOR GFR 0.84 MG/DL (0.55-1.30); GLOMERULAR FILTRATION RATE > 60.0 (>32); GLUCOSE, FASTING 209 MG/DL (74-106); POTASSIUM SERUM 5.7 MMOL/L (3.5-5.1); SODIUM LEVEL 139 MMOL/L (136-145); TOTAL PROTEIN 6.9 G/DL (5.7-8.2)
[2024-09-15 14:48] LABS: THYROID STIMULATING HORMONE 3.081 uIU/ML (0.55-4.78)
[2024-09-15 14:52] LABS: CPK CREATINE PHOSPHOKINASE 66 U/L (34-145); MB/CK RELATIVE INDEX 3.33 (< OR =4)
[2024-09-15 15:13] LABS: INR 1.38; PROTHROMBIN TIME 17.3 SECONDS (12.5-14.5)
[2024-09-15] MEDS: CALCIUM GLUCONATE 1,000 MG in DEXTROSE 5% (D5W) MINI-BAG PLU 100 ML IV ONE (15:15)
[2024-09-15] MEDS: HumuLIN R (REGULAR) INSULIN (NovoLIN R) **100U/ML** PER UNIT IV ONE (15:15)
[2024-09-15] MEDS: FUROSEMIDE 40MG/4ML VIAL IV ONE (15:15)
[2024-09-15] MEDS: DEXTROSE 50% 50ML SYRINGE IV STA (15:34)
[2024-09-15 16:00] LABS: CK-MB VALUE MASS 1.7 NG/ML (<3.6)
[2024-09-15 16:19] LABS: MB/CK RELATIVE INDEX 3.61 (< OR =4)
[2024-09-15] MEDS ORDERED: GLUCOSE 4 GM CHEW PO PRN (16:25)
[2024-09-15] MEDS ORDERED: DEXTROSE 50% 50ML SYRINGE IV PRN (16:25)
[2024-09-15] MEDS ORDERED: GLUCAGON INJ 1MG VIAL SC PRN (16:25)
[2024-09-15 17:00] LABS: PROCALCITONIN 0.05 ng/ml
[2024-09-15] MEDS ORDERED: CARV12.5 PO (17:08)
[2024-09-15] MEDS ORDERED: INSU100I24 SQ (17:11)
[2024-09-15] MEDS ORDERED: LANTINJ4 SC (17:11)
[2024-09-15] MEDS ORDERED: HOME MED LIST COMPLETE! XX SCH (17:15)
[2024-09-15] MEDS: INSULIN LISPRO (NovoLOG) PER UNIT SC SCH ×2 (17:20→21:00)
[2024-09-15] MEDS: FUROSEMIDE 40MG/4ML VIAL IV SCH (21:27)
[2024-09-15] MEDS: CARVedilol 12.5 MG TAB PO SCH (21:27)
[2024-09-15] MEDS: APIXABAN 5 MG TAB (ELIQUIS) PO SCH (21:28)
[2024-09-15 23:13] LABS: BLOOD UREA NITROGEN 23 MG/DL (9-23); CARBON DIOXIDE LEVEL 35 MMOL/L (20-31); CHLORIDE LEVEL 100 MMOL/L (98-107); CREATININE FOR GFR 0.89 MG/DL (0.55-1.30); GLOMERULAR FILTRATION RATE > 60.0 (>32); GLUCOSE, FASTING 209 MG/DL (74-106); POTASSIUM SERUM 4.5 MMOL/L (3.5-5.1); SODIUM LEVEL 140 MMOL/L (136-145)
[2024-09-16] VITALS (12 sets, daily range): BP systolic 117–143; BP diastolic 62–73; TEMP 97–97.5; O2SAT 88–98
[2024-09-16 06:16] LABS: HEMATOCRIT 37.2 % (36.0-47.0); HEMOGLOBIN 10.9 g/dl (12.0-15.5); MEAN CORPUSCULAR HEMOGLOBIN 24.5 pg (27.0-33.0); MEAN CORPUSCULAR HGB CONC 29.3 g/dl (32.0-36.5); MEAN CORPUSCULAR VOLUME 83.8 fl (80.0-96.0); PLATELET COUNT, AUTOMATED 155 10^3/uL (150-450); RED BLOOD COUNT 4.44 10^6/uL (4.00-5.40); WHITE BLOOD COUNT 8.6 10^3/uL (4.0-10.0)
[2024-09-16 06:33] LABS: BLOOD UREA NITROGEN 21 MG/DL (9-23); CARBON DIOXIDE LEVEL 37 MMOL/L (20-31); CHLORIDE LEVEL 100 MMOL/L (98-107); CREATININE FOR GFR 0.93 MG/DL (0.55-1.30); GLOMERULAR FILTRATION RATE > 60.0 (>32); GLUCOSE, FASTING 160 MG/DL (74-106); POTASSIUM SERUM 4.1 MMOL/L (3.5-5.1); SODIUM LEVEL 141 MMOL/L (136-145)
[2024-09-16] MEDS: GABAPENTIN 300 MG CAP PO SCH (12:40)
[2024-09-16] MEDS: OMEPRAZOLE 20MG CAP PO SCH (12:40)
[2024-09-16] MEDS: DIGOXIN 0.25 MG TAB PO STA (15:46)
[2024-09-16] MEDS: DIGOXIN 0.25 MG TAB PO ONE (21:21)
[2024-09-16] MEDS: IPRATROPIUM 0.5MG/ALBUTEROL 2.5MG INH SOL UD 3ML (DUONEB) NEB PRN (23:00)
[2024-09-17] VITALS (7 sets, daily range): BP systolic 109–150; BP diastolic 52–91; TEMP 97.2–98.4; O2SAT 92–96
[2024-09-17 07:50] LABS: BASO % 0.1 % (0.0-1.0); EOS # 0.1 10^3/uL (0.0-0.5); EOS % 1.7 % (0.0-3.0); HEMATOCRIT 35.2 % (36.0-47.0); HEMOGLOBIN 10.4 g/dl (12.0-15.5); LYMPH # 0.7 10^3/uL (1.5-5.0); LYMPH % 10.1 % (24.0-44.0); MEAN CORPUSCULAR HEMOGLOBIN 24.7 pg (27.0-33.0); MEAN CORPUSCULAR HGB CONC 29.5 g/dl (32.0-36.5); MEAN CORPUSCULAR VOLUME 83.6 fl (80.0-96.0); MONO # 0.6 10^3/uL (0.0-0.8); MONO % 8.5 % (2.0-8.0); NEUTROPHILS # 5.5 10^3/uL (1.5-8.5); NEUTROPHILS % 79.2 % (36.0-66.0); PLATELET COUNT, AUTOMATED 138 10^3/uL (150-450); RED BLOOD COUNT 4.21 10^6/uL (4.00-5.40); WHITE BLOOD COUNT 6.9 10^3/uL (4.0-10.0)
[2024-09-17 08:19] LABS: CALCIUM LEVEL 8.9 MG/DL (8.3-10.6); CREATININE FOR GFR 0.96 MG/DL (0.55-1.30); GLOMERULAR FILTRATION RATE 59.2 (>32); POTASSIUM SERUM 4.3 MMOL/L (3.5-5.1)
[2024-09-17] MEDS: DIGOXIN INJ 0.5 MG/2 ML AMP IV ONE ×2 (10:01→16:39)
[2024-09-17] MEDS: NYSTATIN 100,000 UNITS/GM TOPICAL PWD 15GM TOP PRN (15:12)
[2024-09-17] MEDS: ACETAMINOPHEN 500 MG TAB PO PRN (17:49)
[2024-09-18] VITALS (31 sets, daily range): BP systolic 112–154; BP diastolic 53–71; TEMP 97.5–98.2; O2SAT 88–98
[2024-09-18 06:36] LABS: HEMATOCRIT 36.2 % (36.0-47.0); HEMOGLOBIN 10.4 g/dl (12.0-15.5); MEAN CORPUSCULAR HEMOGLOBIN 24.5 pg (27.0-33.0); MEAN CORPUSCULAR HGB CONC 28.7 g/dl (32.0-36.5); MEAN CORPUSCULAR VOLUME 85.2 fl (80.0-96.0); PLATELET COUNT, AUTOMATED 127 10^3/uL (150-450); RED BLOOD COUNT 4.25 10^6/uL (4.00-5.40); WHITE BLOOD COUNT 8.8 10^3/uL (4.0-10.0)
[2024-09-18 06:59] LABS: CALCIUM LEVEL 8.7 MG/DL (8.3-10.6); CREATININE FOR GFR 0.99 MG/DL (0.55-1.30); GLOMERULAR FILTRATION RATE 57.2 (>32); MAGNESIUM LEVEL 2.2 MG/DL (1.8-2.4); PERCENT SATURATION 5.7 % (13.2-45.0); POTASSIUM SERUM 4.5 MMOL/L (3.5-5.1)
[2024-09-18 07:00] LABS: FERRITIN 19.2 NG/ML (7.3-270.7)
[2024-09-18] MEDS ORDERED: FUROSEMIDE 20MG/2ML VIAL IV ONE (10:30)
[2024-09-18] MEDS: FUROSEMIDE 100MG/10ML VIAL IV SCH (11:15)
[2024-09-18] MEDS: DAPAGLIFLOZIN PROPANEDIOL 10MG TABLET (FARXIGA) PO SCH (11:17)
[2024-09-18] MEDS: SPIRONOLACTONE 25 MG TAB PO SCH (11:18)
[2024-09-18] MEDS: FERRIC CARBOXYMALTOSE INJ 750 MG, VIAL MATE ADAPTER 1 EACH in NS 100 ML IV ONE (13:42)
[2024-09-18] MEDS: ONDANSETRON 4MG TAB PO SCH (13:45)
[2024-09-18] MEDS ORDERED: FUROSEMIDE 100MG/10ML VIAL IV SCH (17:00)
[2024-09-18] MEDS: FERROUS SULFATE 300MG/5ML UDC LIQUID PO SCH (21:23)
[2024-09-18] MEDS: SENOKOT S TAB PO SCH (21:23)
[2024-09-19] VITALS (18 sets, daily range): BP systolic 103–150; BP diastolic 49–97; TEMP 97.4–98; O2SAT 88–100
[2024-09-19 06:14] LABS: HEMATOCRIT 39.6 % (36.0-47.0); MEAN CORPUSCULAR HEMOGLOBIN 24.5 pg (27.0-33.0); MEAN CORPUSCULAR HGB CONC 27.8 g/dl (32.0-36.5); MEAN CORPUSCULAR VOLUME 88.2 fl (80.0-96.0); PLATELET COUNT, AUTOMATED 143 10^3/uL (150-450); RED BLOOD COUNT 4.49 10^6/uL (4.00-5.40); WHITE BLOOD COUNT 13.1 10^3/uL (4.0-10.0)
[2024-09-19 06:47] LABS: CALCIUM LEVEL 9.3 MG/DL (8.3-10.6); CREATININE FOR GFR 0.99 MG/DL (0.55-1.30); GLOMERULAR FILTRATION RATE 57.2 (>32); POTASSIUM SERUM 4.8 MMOL/L (3.5-5.1)
[2024-09-19 07:53] LABS: C REACTIVE PROTEIN QUANTITATIV 1.61 MG/DL (<1.0)
[2024-09-19 08:01] LABS: PROCALCITONIN 0.08 ng/ml
[2024-09-19 08:09] LABS: ABG BASE EXCESS 4.3 (-2.0-2.0); ABG HCO3 34.4 MMOL/L (22.0-26.0); ABG O2 SATURATION 88.4 % (95.0-99.0); ABG PARTIAL PRESSURE O2 57.8 mmHg (75.0-100.0); ABG STANDARD HCO3 28.1 MMOL/L. (22.0-26.0)
[2024-09-19 08:10] LABS: ABG PARTIAL PRESSURE CO2 85.6 mmHg (35.0-45.0); ABG pH (ARTERIAL) 7.222 UNITS (7.350-7.450)
[2024-09-19 09:17] LABS: BASO % 0.2 % (0.0-1.0); LYMPH # 0.5 10^3/uL (1.5-5.0); MONO # 0.7 10^3/uL (0.0-0.8); MONO % 5.3 % (2.0-8.0); NEUTROPHILS # 11.2 10^3/uL (1.5-8.5); NEUTROPHILS % 89.3 % (36.0-66.0)
[2024-09-19] MEDS: SODIUM CHLORIDE HYPERTONIC 3% 4ML NEB SOL INH SCH (11:16)
[2024-09-19] MEDS: IPRATROPIUM 0.5MG/ALBUTEROL 2.5MG INH SOL UD 3ML (DUONEB) NEB PRN (11:16)
[2024-09-19] MEDS: guaiFENesin ER TABLET 600 MG TAB PO SCH (12:15)
[2024-09-19 12:24] LABS: VENOUS BASE EXCESS 8.7 (-2.0-2.0); VENOUS HCO3 37.7 MMOL/L (23.0-27.0); VENOUS O2 SATURATION 99.3 % (60.0-80.0); VENOUS PARTIAL PRESSURE CO2 77.4 mmHg (38.0-50.0); VENOUS PARTIAL PRESSURE O2 154.8 mmHg (30.0-50.0); VENOUS PH 7.306 UNITS (7.330-7.430); VENOUS STANDARD HCO3 32.6 MMOL/L; VENOUS TOTAL CO2 40.1 MMOL/L (24.0-28.0)
[2024-09-19 14:12] LABS: VENOUS BASE EXCESS 4.8 (-2.0-2.0); VENOUS HCO3 34.1 MMOL/L (23.0-27.0); VENOUS O2 SATURATION 97.5 % (60.0-80.0); VENOUS PARTIAL PRESSURE CO2 77.4 mmHg (38.0-50.0); VENOUS PARTIAL PRESSURE O2 105.2 mmHg (30.0-50.0); VENOUS PH 7.262 UNITS (7.330-7.430); VENOUS STANDARD HCO3 28.8 MMOL/L; VENOUS TOTAL CO2 36.5 MMOL/L (24.0-28.0)
[2024-09-19] MEDS: IPRATROPIUM 0.5MG/ALBUTEROL 2.5MG INH SOL UD 3ML (DUONEB) NEB ONE (15:45)
[2024-09-19] MEDS: SODIUM CHLORIDE HYPERTONIC 3% 4ML NEB SOL INH ONE (15:45)
[2024-09-19 17:46] LABS: BLOOD UREA NITROGEN 28 MG/DL (9-23); CARBON DIOXIDE LEVEL 39 MMOL/L (20-31); CHLORIDE LEVEL 99 MMOL/L (98-107); CREATININE FOR GFR 0.92 MG/DL (0.55-1.30); GLOMERULAR FILTRATION RATE > 60.0 (>32); GLUCOSE, FASTING 184 MG/DL (74-106); MAGNESIUM LEVEL 2.3 MG/DL (1.8-2.4); PHOSPHORUS LEVEL 4.1 MG/DL (2.4-5.1); SODIUM LEVEL 141 MMOL/L (136-145)
[2024-09-19 19:10] LABS: VENOUS BASE EXCESS 9.4 (-2.0-2.0); VENOUS PARTIAL PRESSURE CO2 66.6 mmHg (38.0-50.0); VENOUS PARTIAL PRESSURE O2 149.1 mmHg (30.0-50.0); VENOUS PH 7.363 UNITS (7.330-7.430); VENOUS STANDARD HCO3 33.2 MMOL/L; VENOUS TOTAL CO2 39.1 MMOL/L (24.0-28.0)
[2024-09-19] MEDS: FUROSEMIDE 40MG/4ML VIAL IV ONE (19:30)
[2024-09-19] MEDS: DEXTROSE 50% 50ML SYRINGE IV STA (19:30)
[2024-09-19] MEDS: CALCIUM GLUCONATE 1,000 MG in DEXTROSE 5% (D5W) MINI-BAG PLU 100 ML IV ONE (19:31)
[2024-09-19] MEDS: HumuLIN R (REGULAR) INSULIN (NovoLIN R) **100U/ML** PER UNIT IV STA (19:32)
[2024-09-19] MEDS: FORMOTEROL FUMARATE 20 MCG/2 ML INHALATION SOLUTION (PERFOROMIST) INH SCH (19:43)
[2024-09-19] MEDS: BUDESONIDE 0.5 MG/2 ML INHALATION SUSPENSION NEB SCH (19:43)
[2024-09-19] MEDS: FUROSEMIDE 40MG/4ML VIAL IV SCH (20:21)
[2024-09-19 22:35] LABS: BLOOD UREA NITROGEN 29 MG/DL (9-23); CARBON DIOXIDE LEVEL > 40.0 MMOL/L (20-31); CHLORIDE LEVEL 100 MMOL/L (98-107); CREATININE FOR GFR 0.96 MG/DL (0.55-1.30); GLOMERULAR FILTRATION RATE 59.2 (>32); GLUCOSE, FASTING 189 MG/DL (74-106); POTASSIUM SERUM 4.6 MMOL/L (3.5-5.1); SODIUM LEVEL 142 MMOL/L (136-145)
[2024-09-20] VITALS (16 sets, daily range): BP systolic 96–141; BP diastolic 50–67; TEMP 96.8–97.9; O2SAT 88–100
[2024-09-20 05:34] LABS: HEMATOCRIT 36.9 % (36.0-47.0); HEMOGLOBIN 10.5 g/dl (12.0-15.5); MEAN CORPUSCULAR HEMOGLOBIN 24.9 pg (27.0-33.0); MEAN CORPUSCULAR HGB CONC 28.5 g/dl (32.0-36.5); MEAN CORPUSCULAR VOLUME 87.4 fl (80.0-96.0); PLATELET COUNT, AUTOMATED 144 10^3/uL (150-450); RED BLOOD COUNT 4.22 10^6/uL (4.00-5.40); WHITE BLOOD COUNT 9.3 10^3/uL (4.0-10.0)
[2024-09-20 06:07] LABS: BLOOD UREA NITROGEN 31 MG/DL (9-23); CALCIUM LEVEL 9.1 MG/DL (8.3-10.6); CARBON DIOXIDE LEVEL > 40.0 MMOL/L (20-31); CHLORIDE LEVEL 101 MMOL/L (98-107); CREATININE FOR GFR 1.05 MG/DL (0.55-1.30); GLOMERULAR FILTRATION RATE 53.4 (>32); GLUCOSE, FASTING 177 MG/DL (74-106); MAGNESIUM LEVEL 2.2 MG/DL (1.8-2.4); PHOSPHORUS LEVEL 3.1 MG/DL (2.4-5.1); POTASSIUM SERUM 4.8 MMOL/L (3.5-5.1); SODIUM LEVEL 143 MMOL/L (136-145)
[2024-09-20] MEDS: FUROSEMIDE 100MG/10ML VIAL IV SCH (18:12)
[2024-09-21] VITALS (9 sets, daily range): BP systolic 114–132; BP diastolic 56–73; TEMP 97–98.4; O2SAT 89–99
[2024-09-21 05:38] LABS: BASO % 0.1 % (0.0-1.0); EOS # 0.1 10^3/uL (0.0-0.5); EOS % 1.7 % (0.0-3.0); HEMATOCRIT 36.9 % (36.0-47.0); HEMOGLOBIN 10.4 g/dl (12.0-15.5); LYMPH # 0.5 10^3/uL (1.5-5.0); LYMPH % 6.5 % (24.0-44.0); MEAN CORPUSCULAR HEMOGLOBIN 24.6 pg (27.0-33.0); MEAN CORPUSCULAR HGB CONC 28.2 g/dl (32.0-36.5); MEAN CORPUSCULAR VOLUME 87.4 fl (80.0-96.0); MONO # 0.7 10^3/uL (0.0-0.8); MONO % 8.9 % (2.0-8.0); NEUTROPHILS # 6.6 10^3/uL (1.5-8.5); NEUTROPHILS % 81.4 % (36.0-66.0); PLATELET COUNT, AUTOMATED 142 10^3/uL (150-450); RED BLOOD COUNT 4.22 10^6/uL (4.00-5.40); WHITE BLOOD COUNT 8.1 10^3/uL (4.0-10.0)
[2024-09-21 06:12] LABS: BLOOD UREA NITROGEN 33 MG/DL (9-23); CALCIUM LEVEL 8.8 MG/DL (8.3-10.6); CARBON DIOXIDE LEVEL > 40.0 MMOL/L (20-31); CHLORIDE LEVEL 100 MMOL/L (98-107); CREATININE FOR GFR 0.98 MG/DL (0.55-1.30); GLOMERULAR FILTRATION RATE 57.8 (>32); GLUCOSE, FASTING 184 MG/DL (74-106); MAGNESIUM LEVEL 2.2 MG/DL (1.8-2.4); POTASSIUM SERUM 4.5 MMOL/L (3.5-5.1); SODIUM LEVEL 143 MMOL/L (136-145)
[2024-09-21] MEDS: SODIUM PHOSPHATE INJ 30 MMOL in D5W 500 ML IV ONE (10:02)
[2024-09-21] MEDS: FUROSEMIDE 100MG/10ML VIAL IV SCH (16:04)
[2024-09-22] VITALS (7 sets, daily range): BP systolic 106–152; BP diastolic 55–70; TEMP 97–97.6; O2SAT 91–96
[2024-09-22 05:04] LABS: BASO % 0.4 % (0.0-1.0); EOS # 0.2 10^3/uL (0.0-0.5); EOS % 2.1 % (0.0-3.0); HEMATOCRIT 39.5 % (36.0-47.0); HEMOGLOBIN 11.3 g/dl (12.0-15.5); LYMPH # 0.6 10^3/uL (1.5-5.0); LYMPH % 8.4 % (24.0-44.0); MEAN CORPUSCULAR HEMOGLOBIN 25.2 pg (27.0-33.0); MEAN CORPUSCULAR HGB CONC 28.6 g/dl (32.0-36.5); MONO # 0.7 10^3/uL (0.0-0.8); MONO % 9.3 % (2.0-8.0); NEUTROPHILS # 5.7 10^3/uL (1.5-8.5); NEUTROPHILS % 78.3 % (36.0-66.0); RED BLOOD COUNT 4.49 10^6/uL (4.00-5.40); WHITE BLOOD COUNT 7.3 10^3/uL (4.0-10.0)
[2024-09-22 05:21] LABS: BLOOD UREA NITROGEN 29 MG/DL (9-23); CALCIUM LEVEL 8.3 MG/DL (8.3-10.6); CARBON DIOXIDE LEVEL 39 MMOL/L (20-31); CHLORIDE LEVEL 99 MMOL/L (98-107); CREATININE FOR GFR 0.85 MG/DL (0.55-1.30); GLOMERULAR FILTRATION RATE > 60.0 (>32); GLUCOSE, FASTING 165 MG/DL (74-106); MAGNESIUM LEVEL 2.1 MG/DL (1.8-2.4); PHOSPHORUS LEVEL 2.4 MG/DL (2.4-5.1); POTASSIUM SERUM 4.6 MMOL/L (3.5-5.1); SODIUM LEVEL 144 MMOL/L (136-145)
[2024-09-23] VITALS (8 sets, daily range): BP systolic 122–135; BP diastolic 56–65; TEMP 97.2–97.7; O2SAT 92–99
[2024-09-23 04:33] LABS: BASO % 0.1 % (0.0-1.0); EOS # 0.1 10^3/uL (0.0-0.5); EOS % 1.3 % (0.0-3.0); HEMATOCRIT 37.5 % (36.0-47.0); HEMOGLOBIN 10.5 g/dl (12.0-15.5); LYMPH # 0.7 10^3/uL (1.5-5.0); LYMPH % 9.5 % (24.0-44.0); MEAN CORPUSCULAR HEMOGLOBIN 25.1 pg (27.0-33.0); MEAN CORPUSCULAR VOLUME 89.5 fl (80.0-96.0); MONO # 0.7 10^3/uL (0.0-0.8); MONO % 9.5 % (2.0-8.0); NEUTROPHILS % 78.3 % (36.0-66.0); PLATELET COUNT, AUTOMATED 126 10^3/uL (150-450); RED BLOOD COUNT 4.19 10^6/uL (4.00-5.40); WHITE BLOOD COUNT 7.6 10^3/uL (4.0-10.0)
[2024-09-23 05:11] LABS: BLOOD UREA NITROGEN 24 MG/DL (9-23); CALCIUM LEVEL 8.3 MG/DL (8.3-10.6); CARBON DIOXIDE LEVEL > 40.0 MMOL/L (20-31); CHLORIDE LEVEL 97 MMOL/L (98-107); CREATININE FOR GFR 0.78 MG/DL (0.55-1.30); GLOMERULAR FILTRATION RATE > 60.0 (>32); GLUCOSE, FASTING 162 MG/DL (74-106); MAGNESIUM LEVEL 2.1 MG/DL (1.8-2.4); POTASSIUM SERUM 3.9 MMOL/L (3.5-5.1); SODIUM LEVEL 147 MMOL/L (136-145)
[2024-09-23] MEDS: FUROSEMIDE 100MG/10ML VIAL IV SCH (08:10)
[2024-09-23 13:00] LABS: PROCALCITONIN 0.06 ng/ml
[2024-09-23] MEDS: ONDANSETRON 4MG TAB PO PRN (19:42)
[2024-09-24] VITALS (7 sets, daily range): BP systolic 110–129; BP diastolic 57–64; TEMP 97.2–97.7; O2SAT 79–97
[2024-09-24 04:39] LABS: BASO % 0.1 % (0.0-1.0); EOS # 0.1 10^3/uL (0.0-0.5); EOS % 1.5 % (0.0-3.0); HEMATOCRIT 38.1 % (36.0-47.0); HEMOGLOBIN 10.7 g/dl (12.0-15.5); LYMPH # 0.7 10^3/uL (1.5-5.0); LYMPH % 8.5 % (24.0-44.0); MEAN CORPUSCULAR HEMOGLOBIN 25.1 pg (27.0-33.0); MEAN CORPUSCULAR HGB CONC 28.1 g/dl (32.0-36.5); MEAN CORPUSCULAR VOLUME 89.2 fl (80.0-96.0); MONO # 0.7 10^3/uL (0.0-0.8); MONO % 8.8 % (2.0-8.0); NEUTROPHILS # 6.3 10^3/uL (1.5-8.5); NEUTROPHILS % 80.1 % (36.0-66.0); PLATELET COUNT, AUTOMATED 118 10^3/uL (150-450); RED BLOOD COUNT 4.27 10^6/uL (4.00-5.40); WHITE BLOOD COUNT 7.9 10^3/uL (4.0-10.0)
[2024-09-24 04:58] LABS: BLOOD UREA NITROGEN 21 MG/DL (9-23); CALCIUM LEVEL 8.2 MG/DL (8.3-10.6); CARBON DIOXIDE LEVEL > 40.0 MMOL/L (20-31); CHLORIDE LEVEL 96 MMOL/L (98-107); CREATININE FOR GFR 0.79 MG/DL (0.55-1.30); GLOMERULAR FILTRATION RATE > 60.0 (>32); GLUCOSE, FASTING 185 MG/DL (74-106); MAGNESIUM LEVEL 2.2 MG/DL (1.8-2.4); SODIUM LEVEL 144 MMOL/L (136-145)
[2024-09-24 07:42] LABS: VENOUS BASE EXCESS 18.4 (-2.0-2.0); VENOUS HCO3 45.9 MMOL/L (23.0-27.0); VENOUS O2 SATURATION 99.5 % (60.0-80.0); VENOUS PARTIAL PRESSURE CO2 69.2 mmHg (38.0-50.0); VENOUS PARTIAL PRESSURE O2 165.1 mmHg (30.0-50.0); VENOUS STANDARD HCO3 42.6 MMOL/L; VENOUS TOTAL CO2 48.1 MMOL/L (24.0-28.0)
[2024-09-24] MEDS: FUROSEMIDE 100MG/10ML VIAL IV SCH (08:02)
[2024-09-24] MEDS: FUROSEMIDE 40MG/4ML VIAL IV SCH (13:07)
[2024-09-24 13:30] LABS: ABG BASE EXCESS 19.3 (-2.0-2.0); ABG HCO3 49.7 MMOL/L (22.0-26.0); ABG O2 SATURATION 97.4 % (95.0-99.0); ABG PARTIAL PRESSURE O2 91.8 mmHg (75.0-100.0); ABG STANDARD HCO3 43.5 MMOL/L. (22.0-26.0); ABG TOTAL CO2 52.7 MMOL/L (23.0-31.0); ABG pH (ARTERIAL) 7.324 UNITS (7.350-7.450)
[2024-09-24 13:33] LABS: ABG PARTIAL PRESSURE CO2 97.7 mmHg (35.0-45.0)
[2024-09-24 22:28] LABS: ABG BASE EXCESS 18.2 (-2.0-2.0); ABG HCO3 46.1 MMOL/L (22.0-26.0); ABG O2 SATURATION 96.1 % (95.0-99.0); ABG PARTIAL PRESSURE CO2 73.5 mmHg (35.0-45.0); ABG PARTIAL PRESSURE O2 77.4 mmHg (75.0-100.0); ABG STANDARD HCO3 42.2 MMOL/L. (22.0-26.0); ABG TOTAL CO2 48.3 MMOL/L (23.0-31.0); ABG pH (ARTERIAL) 7.415 UNITS (7.350-7.450)
[2024-09-25] VITALS (25 sets, daily range): BP systolic 102–126; BP diastolic 42–59; TEMP 97.2–99.4; O2SAT 88–97
[2024-09-25 02:00] LABS: ABG BASE EXCESS 16.7 (-2.0-2.0); ABG HCO3 43.8 MMOL/L (22.0-26.0); ABG O2 SATURATION 97.6 % (95.0-99.0); ABG PARTIAL PRESSURE O2 95.8 mmHg (75.0-100.0); ABG STANDARD HCO3 40.7 MMOL/L. (22.0-26.0); ABG TOTAL CO2 45.9 MMOL/L (23.0-31.0); ABG pH (ARTERIAL) 7.437 UNITS (7.350-7.450)
[2024-09-25 02:01] LABS: ABG PARTIAL PRESSURE CO2 66.5 mmHg (35.0-45.0)
[2024-09-25 05:28] LABS: BASO % 0.2 % (0.0-1.0); EOS # 0.1 10^3/uL (0.0-0.5); EOS % 1.4 % (0.0-3.0); HEMATOCRIT 38.5 % (36.0-47.0); HEMOGLOBIN 10.8 g/dl (12.0-15.5); LYMPH # 0.6 10^3/uL (1.5-5.0); LYMPH % 7.1 % (24.0-44.0); MEAN CORPUSCULAR HEMOGLOBIN 25.4 pg (27.0-33.0); MEAN CORPUSCULAR HGB CONC 28.1 g/dl (32.0-36.5); MEAN CORPUSCULAR VOLUME 90.6 fl (80.0-96.0); MONO # 0.7 10^3/uL (0.0-0.8); NEUTROPHILS # 7.4 10^3/uL (1.5-8.5); NEUTROPHILS % 82.3 % (36.0-66.0); PLATELET COUNT, AUTOMATED 107 10^3/uL (150-450); RED BLOOD COUNT 4.25 10^6/uL (4.00-5.40)
[2024-09-25 05:57] LABS: BLOOD UREA NITROGEN 19 MG/DL (9-23); CALCIUM LEVEL 8.3 MG/DL (8.3-10.6); CARBON DIOXIDE LEVEL > 40.0 MMOL/L (20-31); CHLORIDE LEVEL 97 MMOL/L (98-107); CREATININE FOR GFR 0.77 MG/DL (0.55-1.30); GLOMERULAR FILTRATION RATE > 60.0 (>32); GLUCOSE, FASTING 126 MG/DL (74-106); MAGNESIUM LEVEL 2.3 MG/DL (1.8-2.4); POTASSIUM SERUM 3.8 MMOL/L (3.5-5.1); SODIUM LEVEL 145 MMOL/L (136-145)
[2024-09-26] VITALS (25 sets, daily range): BP systolic 107–144; BP diastolic 52–61; TEMP 97.6–98.3; O2SAT 87–98
[2024-09-26 05:15] LABS: BASO % 0.1 % (0.0-1.0); EOS # 0.1 10^3/uL (0.0-0.5); EOS % 1.6 % (0.0-3.0); HEMATOCRIT 36.4 % (36.0-47.0); HEMOGLOBIN 10.6 g/dl (12.0-15.5); LYMPH # 0.8 10^3/uL (1.5-5.0); LYMPH % 9.9 % (24.0-44.0); MEAN CORPUSCULAR HEMOGLOBIN 25.7 pg (27.0-33.0); MEAN CORPUSCULAR HGB CONC 29.1 g/dl (32.0-36.5); MEAN CORPUSCULAR VOLUME 88.3 fl (80.0-96.0); MONO # 0.6 10^3/uL (0.0-0.8); MONO % 8.4 % (2.0-8.0); NEUTROPHILS % 79.1 % (36.0-66.0); PLATELET COUNT, AUTOMATED 112 10^3/uL (150-450); RED BLOOD COUNT 4.12 10^6/uL (4.00-5.40); WHITE BLOOD COUNT 7.6 10^3/uL (4.0-10.0)
[2024-09-26 05:44] LABS: BLOOD UREA NITROGEN 17 MG/DL (9-23); CALCIUM LEVEL 8.4 MG/DL (8.3-10.6); CARBON DIOXIDE LEVEL > 40.0 MMOL/L (20-31); CHLORIDE LEVEL 96 MMOL/L (98-107); CREATININE FOR GFR 0.78 MG/DL (0.55-1.30); GLOMERULAR FILTRATION RATE > 60.0 (>32); GLUCOSE, FASTING 156 MG/DL (74-106); MAGNESIUM LEVEL 2.3 MG/DL (1.8-2.4); PHOSPHORUS LEVEL 1.1 MG/DL (2.4-5.1); POTASSIUM SERUM 3.6 MMOL/L (3.5-5.1); SODIUM LEVEL 144 MMOL/L (136-145)
[2024-09-26] MEDS: POTASSIUM PHOSPHATE INJ 30 MMOL in D5W 500 ML IV ONE (11:33)
[2024-09-27] VITALS (19 sets, daily range): BP systolic 103–122; BP diastolic 50–71; TEMP 97–98.8; O2SAT 91–98
[2024-09-27 06:20] LABS: BLOOD UREA NITROGEN 15 MG/DL (9-23); CALCIUM LEVEL 8.4 MG/DL (8.3-10.6); CARBON DIOXIDE LEVEL > 40.0 MMOL/L (20-31); CHLORIDE LEVEL 95 MMOL/L (98-107); CREATININE FOR GFR 0.77 MG/DL (0.55-1.30); GLOMERULAR FILTRATION RATE > 60.0 (>32); GLUCOSE, FASTING 153 MG/DL (74-106); MAGNESIUM LEVEL 2.3 MG/DL (1.8-2.4); PHOSPHORUS LEVEL 1.7 MG/DL (2.4-5.1); POTASSIUM SERUM 3.8 MMOL/L (3.5-5.1); SODIUM LEVEL 144 MMOL/L (136-145)
[2024-09-27 06:25] LABS: BASO % 0.1 % (0.0-1.0); EOS # 0.1 10^3/uL (0.0-0.5); EOS % 1.6 % (0.0-3.0); HEMATOCRIT 37.6 % (36.0-47.0); HEMOGLOBIN 10.9 g/dl (12.0-15.5); LYMPH # 0.7 10^3/uL (1.5-5.0); LYMPH % 8.9 % (24.0-44.0); MEAN CORPUSCULAR HEMOGLOBIN 25.3 pg (27.0-33.0); MEAN CORPUSCULAR VOLUME 87.2 fl (80.0-96.0); MONO # 0.7 10^3/uL (0.0-0.8); MONO % 8.6 % (2.0-8.0); NEUTROPHILS # 6.4 10^3/uL (1.5-8.5); NEUTROPHILS % 80.2 % (36.0-66.0); PLATELET COUNT, AUTOMATED 117 10^3/uL (150-450); RED BLOOD COUNT 4.31 10^6/uL (4.00-5.40)
[2024-09-27] MEDS: POTASSIUM PHOSPHATE INJ 30 MMOL in D5W 500 ML IV ONE (11:05)
[2024-09-28] VITALS (10 sets, daily range): BP systolic 106–130; BP diastolic 49–94; TEMP 96.7–98.2; O2SAT 83–97
[2024-09-28] MEDS: VANICREAM MOISTURIZING SKIN CREAM 113GM TUBE TOP SCH (09:00)
[2024-09-28] MEDS: POTASSIUM PHOSPHATE INJ 20 MMOL in D5W 250 ML IV ONE (09:15)
[2024-09-28 14:44] LABS: BLOOD UREA NITROGEN 14 MG/DL (9-23); CALCIUM LEVEL 8.6 MG/DL (8.3-10.6); CARBON DIOXIDE LEVEL > 40.0 MMOL/L (20-31); CHLORIDE LEVEL 97 MMOL/L (98-107); CREATININE FOR GFR 0.79 MG/DL (0.55-1.30); GLOMERULAR FILTRATION RATE > 60.0 (>32); GLUCOSE, FASTING 210 MG/DL (74-106); PHOSPHORUS LEVEL 1.8 MG/DL (2.4-5.1); SODIUM LEVEL 143 MMOL/L (136-145)
[2024-09-28] MEDS: ONDANSETRON 4MG TAB PO PRN (21:48)
[2024-09-29] VITALS (11 sets, daily range): BP systolic 112–126; BP diastolic 56–79; TEMP 96.3–98.6; O2SAT 91–99
[2024-09-29] MEDS: POTASSIUM PHOSPHATE INJ 30 MMOL in D5W 500 ML IV ONE (09:00)
[2024-09-29] MEDS: FUROSEMIDE 40MG/4ML VIAL IV SCH (15:47)
[2024-09-30 03:42] VITALS: BP 119/72; TEMP 97; O2SAT 97
[2024-09-30 08:00] VITALS: BP 104/72; TEMP 97.7; O2SAT 93
[2024-09-30 08:37] LABS: BLOOD UREA NITROGEN 11 MG/DL (9-23); CALCIUM LEVEL 8.5 MG/DL (8.3-10.6); CARBON DIOXIDE LEVEL > 40.0 MMOL/L (20-31); CHLORIDE LEVEL 98 MMOL/L (98-107); CREATININE FOR GFR 0.81 MG/DL (0.55-1.30); GLOMERULAR FILTRATION RATE > 60.0 (>32); GLUCOSE, FASTING 170 MG/DL (74-106); MAGNESIUM LEVEL 2.4 MG/DL (1.8-2.4); POTASSIUM SERUM 4.3 MMOL/L (3.5-5.1); SODIUM LEVEL 144 MMOL/L (136-145)
[2024-09-30 09:15] LABS: ABG BASE EXCESS 15.1 (-2.0-2.0); ABG HCO3 42.5 MMOL/L (22.0-26.0); ABG O2 SATURATION 88.9 % (95.0-99.0); ABG PARTIAL PRESSURE O2 52.5 mmHg (75.0-100.0); ABG STANDARD HCO3 38.7 MMOL/L. (22.0-26.0); ABG TOTAL CO2 44.6 MMOL/L (23.0-31.0); ABG pH (ARTERIAL) 7.419 UNITS (7.350-7.450)
[2024-09-30 09:17] LABS: ABG PARTIAL PRESSURE CO2 67.2 mmHg (35.0-45.0)
[2024-09-30 12:00] VITALS: BP 126/72; TEMP 97.6; O2SAT 94
[2024-09-30 16:00] VITALS: BP 110/53; TEMP 97.5; O2SAT 94
[2024-09-30 19:22] VITALS: BP 118/58; TEMP 96.4; O2SAT 93
[2024-10-01] VITALS (7 sets, daily range): BP systolic 112–142; BP diastolic 56–63; TEMP 97–98.1; O2SAT 89–98
[2024-10-02 04:05] VITALS: BP 136/70; TEMP 96.9; O2SAT 76
[2024-10-02 07:35] VITALS: O2SAT 87
[2024-10-02 07:36] VITALS: BP 139/80; TEMP 98.1; O2SAT 91
[2024-10-02 08:31] VITALS: BP 139/80
[2024-10-02] MEDS: FUROSEMIDE 40 MG TAB PO SCH (08:37)
[2024-10-02] MEDS ORDERED: ALDA25TA2 PO (09:13)
[2024-10-02] MEDS ORDERED: FARX1TAB3 PO (09:13)
[2024-10-02] MEDS ORDERED: TORS20TA2 PO (09:13)
== END 2024-10-02 12:05 | DRG 291 ==
LOC: EDBD 13:22 → M ED 13:22 → M ED INP 16:22 → M PCU 09-16 13:30 → M ICU 09-19 15:54 → M PCU 09-27 15:17
PROVIDERS: ADMIT Internal Medicine; ATTEND Student in an Organized Health Care Education/Training Program
DX: I11.0 Hypertensive heart disease with heart failure (principal); I50.23 Acute on chronic systolic (congestive) heart failure; J96.22 Acute and chronic respiratory failure with hypercapnia; J96.21 Acute and chronic respiratory failure with hypoxia; I48.20 Chronic atrial fibrillation, unspecified; Z68.42 Body mass index [BMI] 45.0-49.9, adult; J98.11 Atelectasis; E87.20 Acidosis, unspecified; E87.0 Hyperosmolality and hypernatremia; E11.51 Type 2 diabetes mellitus with diabetic peripheral angiopathy without gangrene; I25.10 Atherosclerotic heart disease of native coronary artery without angina pectoris; K21.9 Gastro-esophageal reflux disease without esophagitis; E87.5 Hyperkalemia; I27.20 Pulmonary hypertension, unspecified; E66.01 Morbid (severe) obesity due to excess calories; E11.42 Type 2 diabetes mellitus with diabetic polyneuropathy; G47.33 Obstructive sleep apnea (adult) (pediatric); B97.89 Other viral agents as the cause of diseases classified elsewhere; Z79.4 Long term (current) use of insulin; Z79.899 Other long term (current) drug therapy; L53.8 Other specified erythematous conditions; E11.40 Type 2 diabetes mellitus with diabetic neuropathy, unspecified; D50.9 Iron deficiency anemia, unspecified; D69.6 Thrombocytopenia, unspecified; K44.9 Diaphragmatic hernia without obstruction or gangrene; Z95.2 Presence of prosthetic heart valve; E83.39 Other disorders of phosphorus metabolism; T17.990A Other foreign object in respiratory tract, part unspecified in causing asphyxiation, initial encounter; D72.829 Elevated white blood cell count, unspecified

== ENCOUNTER → 2024-10-03 | Outpatient (REF) ==
[~2024-10-03] MED LIST changes: +ALDA25TA2 PO; +FARX1TAB3 PO; +INSU100I24 SQ
[2024-10-03 15:47] LABS: HEMATOCRIT 40.9 % (36.0-47.0); HEMOGLOBIN 11.8 g/dl (12.0-15.5); MEAN CORPUSCULAR HEMOGLOBIN 26.2 pg (27.0-33.0); MEAN CORPUSCULAR HGB CONC 28.9 g/dl (32.0-36.5); MEAN CORPUSCULAR VOLUME 90.7 fl (80.0-96.0); PLATELET COUNT, AUTOMATED 165 10^3/uL (150-450); RED BLOOD COUNT 4.51 10^6/uL (4.00-5.40); WHITE BLOOD COUNT 6.8 10^3/uL (4.0-10.0)
[2024-10-03 16:31] LABS: CALCIUM LEVEL 8.6 MG/DL (8.3-10.6); CREATININE FOR GFR 0.95 MG/DL (0.55-1.30); POTASSIUM SERUM 3.9 MMOL/L (3.5-5.1)
[2024-10-03 16:35] LABS: HEMOGLOBIN A1c 7.6 % (4.0-6.0)
== END ==
PROVIDERS: ATTEND Internal Medicine
DX: Z02.2 Encounter for examination for admission to residential institution (principal); J98.9 Respiratory disorder, unspecified

== ENCOUNTER → 2024-10-04 | Outpatient (REF) ==
[2024-10-04 14:17] LABS: BASO % 0.2 % (0.0-1.0); EOS # 0.1 10^3/uL (0.0-0.5); EOS % 1.5 % (0.0-3.0); HEMATOCRIT 40.8 % (36.0-47.0); HEMOGLOBIN 11.6 g/dl (12.0-15.5); LYMPH # 0.7 10^3/uL (1.5-5.0); LYMPH % 10.5 % (24.0-44.0); MEAN CORPUSCULAR HEMOGLOBIN 25.3 pg (27.0-33.0); MEAN CORPUSCULAR HGB CONC 28.4 g/dl (32.0-36.5); MEAN CORPUSCULAR VOLUME 88.9 fl (80.0-96.0); MONO # 0.5 10^3/uL (0.0-0.8); MONO % 7.6 % (2.0-8.0); NEUTROPHILS # 5.3 10^3/uL (1.5-8.5); NEUTROPHILS % 79.7 % (36.0-66.0); PLATELET COUNT, AUTOMATED 182 10^3/uL (150-450); RED BLOOD COUNT 4.59 10^6/uL (4.00-5.40); WHITE BLOOD COUNT 6.6 10^3/uL (4.0-10.0)
[2024-10-04 14:45] LABS: ALBUMIN 3.1 G/DL (3.2-5.2); ALKALINE PHOSPHATASE 93 U/L (35-104); ALT/SGPT 11 U/L (7.0-40); AST/SGOT 18 U/L (<34); BLOOD UREA NITROGEN 15 MG/DL (9-23); CALCIUM LEVEL 8.9 MG/DL (8.3-10.6); CARBON DIOXIDE LEVEL 37 MMOL/L (20-31); CHLORIDE LEVEL 100 MMOL/L (98-107); CREATININE FOR GFR 0.88 MG/DL (0.55-1.30); GLOMERULAR FILTRATION RATE > 60.0 (>32); GLUCOSE, FASTING 201 MG/DL (74-106); POTASSIUM SERUM 4.3 MMOL/L (3.5-5.1); SODIUM LEVEL 142 MMOL/L (136-145); TOTAL PROTEIN 6.2 G/DL (5.7-8.2)
== END ==
PROVIDERS: ATTEND Physician Assistant
DX: R10.9 Unspecified abdominal pain (principal)

== ENCOUNTER → 2024-10-10 | Outpatient (REF) ==
[2024-10-10 09:18] LABS: BLOOD UREA NITROGEN 15 MG/DL (9-23); CALCIUM LEVEL 8.5 MG/DL (8.3-10.6); CARBON DIOXIDE LEVEL 38 MMOL/L (20-31); CHLORIDE LEVEL 96 MMOL/L (98-107); CREATININE FOR GFR 0.88 MG/DL (0.55-1.30); GLOMERULAR FILTRATION RATE > 60.0 (>32); GLUCOSE, FASTING 160 MG/DL (74-106); POTASSIUM SERUM 3.8 MMOL/L (3.5-5.1); SODIUM LEVEL 143 MMOL/L (136-145)
[2024-10-10 09:22] LABS: HEMATOCRIT 41.4 % (36.0-47.0); MEAN CORPUSCULAR HEMOGLOBIN 25.9 pg (27.0-33.0); MEAN CORPUSCULAR VOLUME 89.2 fl (80.0-96.0); PLATELET COUNT, AUTOMATED 134 10^3/uL (150-450); RED BLOOD COUNT 4.64 10^6/uL (4.00-5.40); WHITE BLOOD COUNT 6.9 10^3/uL (4.0-10.0)
== END ==
PROVIDERS: ATTEND Physician Assistant
DX: I50.9 Heart failure, unspecified (principal)

== ENCOUNTER → 2024-10-24 | Outpatient (REF) ==
[2024-10-24 17:36] LABS: HEMATOCRIT 45.9 % (36.0-47.0); HEMOGLOBIN 13.7 g/dl (12.0-15.5); MEAN CORPUSCULAR HEMOGLOBIN 25.8 pg (27.0-33.0); MEAN CORPUSCULAR HGB CONC 29.8 g/dl (32.0-36.5); MEAN CORPUSCULAR VOLUME 86.3 fl (80.0-96.0); PLATELET COUNT, AUTOMATED 150 10^3/uL (150-450); RED BLOOD COUNT 5.32 10^6/uL (4.00-5.40); WHITE BLOOD COUNT 9.2 10^3/uL (4.0-10.0)
[2024-10-24 18:08] LABS: BLOOD UREA NITROGEN 19 MG/DL (9-23); CALCIUM LEVEL 8.8 MG/DL (8.3-10.6); CARBON DIOXIDE LEVEL 30 MMOL/L (20-31); CHLORIDE LEVEL 97 MMOL/L (98-107); CREATININE FOR GFR 0.89 MG/DL (0.55-1.30); GLOMERULAR FILTRATION RATE > 60.0 (>32); GLUCOSE, FASTING 163 MG/DL (74-106); POTASSIUM SERUM 4.5 MMOL/L (3.5-5.1); SODIUM LEVEL 140 MMOL/L (136-145)
== END ==
PROVIDERS: ATTEND Physician Assistant
DX: R29.6 Repeated falls (principal)

== ENCOUNTER → 2024-10-31 | Outpatient (REF) ==
[2024-10-31 09:29] LABS: HEMATOCRIT 48.4 % (36.0-47.0); HEMOGLOBIN 14.5 g/dl (12.0-15.5); MEAN CORPUSCULAR HEMOGLOBIN 25.9 pg (27.0-33.0); MEAN CORPUSCULAR VOLUME 86.4 fl (80.0-96.0); PLATELET COUNT, AUTOMATED 154 10^3/uL (150-450); WHITE BLOOD COUNT 8.3 10^3/uL (4.0-10.0)
[2024-10-31 10:12] LABS: BLOOD UREA NITROGEN 19 MG/DL (9-23); CALCIUM LEVEL 9.2 MG/DL (8.3-10.6); CARBON DIOXIDE LEVEL 31 MMOL/L (20-31); CHLORIDE LEVEL 98 MMOL/L (98-107); CREATININE FOR GFR 0.92 MG/DL (0.55-1.30); GLOMERULAR FILTRATION RATE > 60.0 (>32); GLUCOSE, FASTING 142 MG/DL (74-106); POTASSIUM SERUM 4.1 MMOL/L (3.5-5.1); SODIUM LEVEL 142 MMOL/L (136-145)
== END ==
PROVIDERS: ATTEND Physician Assistant
DX: E11.9 Type 2 diabetes mellitus without complications (principal)

== ENCOUNTER → 2024-11-01 | Outpatient (REF) | PROVIDERS: ATTEND Internal Medicine | DX: I50.9 Heart failure, unspecified (principal) ==

== ENCOUNTER → 2024-11-05 | Outpatient (REF) ==
[2024-11-05 09:27] LABS: HEMATOCRIT 51.2 % (36.0-47.0); HEMOGLOBIN 15.6 g/dl (12.0-15.5); MEAN CORPUSCULAR HGB CONC 30.5 g/dl (32.0-36.5); MEAN CORPUSCULAR VOLUME 85.3 fl (80.0-96.0); PLATELET COUNT, AUTOMATED 186 10^3/uL (150-450); WHITE BLOOD COUNT 8.4 10^3/uL (4.0-10.0)
[2024-11-05 09:48] LABS: BLOOD UREA NITROGEN 22 MG/DL (9-23); CALCIUM LEVEL 9.3 MG/DL (8.3-10.6); CARBON DIOXIDE LEVEL 34 MMOL/L (20-31); CHLORIDE LEVEL 98 MMOL/L (98-107); CREATININE FOR GFR 0.91 MG/DL (0.55-1.30); GLOMERULAR FILTRATION RATE > 60.0 (>32); GLUCOSE, FASTING 174 MG/DL (74-106); HEMOGLOBIN A1c 7.7 % (4.0-6.0); POTASSIUM SERUM 3.7 MMOL/L (3.5-5.1); SODIUM LEVEL 142 MMOL/L (136-145)
== END ==
PROVIDERS: ATTEND Physician Assistant
DX: E11.9 Type 2 diabetes mellitus without complications (principal); I50.9 Heart failure, unspecified

== ENCOUNTER → 2024-11-07 | Outpatient (REF) | payer MEDICARE, OTHER | LOC: M ADAMS 11:11 → EDSTATUS 11-08 08:48 | PROVIDERS: ATTEND Internal Medicine Critical Care Medicine | DX: I27.20 Pulmonary hypertension, unspecified (principal) ==

== ENCOUNTER → 2024-11-07 | Outpatient (REF) | payer MEDICARE, OTHER | LOC: M ADAMS 11:09 → EDSTATUS 11-08 08:49 | PROVIDERS: ATTEND Physician Assistant | DX: M17.11 Unilateral primary osteoarthritis, right knee (principal); M17.12 Unilateral primary osteoarthritis, left knee ==

== ENCOUNTER → 2024-12-12 | Outpatient (CLI) | payer MEDICARE, OTHER | LOC: M SOG 07:57 | PROVIDERS: ATTEND Orthopaedic Surgery | DX: S72.142D Displaced intertrochanteric fracture of left femur, subsequent encounter for closed fracture with routine healing (principal); Z53.9 Procedure and treatment not carried out, unspecified reason ==

== ENCOUNTER → 2025-04-09 | Outpatient (CLI) | payer MEDICARE, OTHER, MEDICAID ==
[~2025-04-09] MED LIST changes: +LIDOCAINE 1% MDV 20 ML VIAL SC STA
[2025-04-09 13:00] VITALS: TEMP 97
[2025-04-09 13:53] VITALS: BP 158/77; O2SAT 97
== END ==
LOC: M IRPRO 12:45
PROVIDERS: ATTEND Nurse Practitioner Family
DX: E04.2 Nontoxic multinodular goiter (principal)

== ENCOUNTER → 2025-05-20 | Outpatient (CLI) | payer MEDICARE, OTHER, MEDICAID ==
[~2025-05-20] MED LIST changes: -LIDOCAINE 1% MDV 20 ML VIAL SC STA
== END ==
LOC: M SOG 09:57
PROVIDERS: ATTEND Orthopaedic Surgery
DX: S72.142D Displaced intertrochanteric fracture of left femur, subsequent encounter for closed fracture with routine healing (principal)